=== PATIENT | female | born 2000 | race Two or more races ===

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

== ENCOUNTER 2021-05-02 10:02 | Emergency (ER) | payer MEDICAID, SELFPAY ==
[2021-05-02 10:09] VITALS: BP 152/95; PULSE 89; RESP 18; TEMP 36.3; O2SAT 98; BMI 48.7
[2021-05-02] MEDS: Fluorescein Sodium STRIP 1 STRIP EYE-BOTH (12:35)
[2021-05-02] MEDS: Tetracaine HCl/PF 0.5% Oph Sol 4 ML DROPS 1 DROP EYE-BOTH (12:35)
--- NOTE | 2021-05-02 12:40 | ED_ITS ---
HPI - General Adult General Chief complaint: General Medical Stated complaint: med reaction Time Seen by Provider: 05/02/21 11:50 Source: patient Mode of arrival: ambulatory Limitations: no limitations History of Present Illness HPI narrative: 20-year-old female with a longstanding history migraines here with complaints of concern for medication reaction. Patient tells me that she was started on Topamax by her primary care 1 week ago for her migraines. She tells me for the last 4 days she has felt like she has had flashing lights in her right eye with some intermittent blurred vision. No eye pain, drainage or discharge. She is also having continued headaches daily. No nausea, vomiting, dizziness. She does use glasses. No contact use. Related Data Allergies Allergy/AdvReac Type Severity Reaction Status Date / Time No Known Allergies Allergy Unverified 04/08/20 17:50 [No Known Allergies*] Review of Systems Review of Systems: Yes all other systems are reviewed and are negative Constitutional: Constitutional: Reports no additional constitutional complaints, Denies body ache(s), Denies chills, Denies fever(s), Denies headache(s) and Denies weakness Eyes: Eyes: Reports no additional eye complaints, Denies change in vision and Reports seeing flashes ENT: Reports system reviewed and no additional complaints, except as documented, Denies dizziness, Denies headache(s), Denies nasal congestion, Denies nasal discharge and Denies neck pain Cardiovascular: Cardiovascular: Reports no additional cardiovascular complaints, Denies chest pain, Denies leg edema and Denies dyspnea Respiratory: Respiratory: Reports no additional respiratory complaints, Denies cough and Denies dyspnea Gastrointestinal: Gastrointestinal: Reports no additional gastrointestinal complaints, Denies abdominal pain, Denies diarrhea, Denies nausea and Denies vomiting Genitourinary: Genitourinary: Reports no additional female genitourinary complaints and Denies urinary incontinence Musculoskeletal: Musculoskeletal: Reports no additional musculoskeletal complaints, Denies back pain, Denies arthralgias, Denies joint swelling, Denies neck pain, Denies numbness and Denies tingling Integumentary/Breasts: Skin/Breast: Reports system reviewed and no additional complaints, except as docu and Denies rash Neurologic: Reports system reviewed and no additional complaints, except as documented, Denies Abnormal speech present, Denies dizziness, Denies headache(s), Denies numbness, Denies tingling and Denies weakness [facility] Past Medical History Attestation statement: The following information was validated with the patient. Source: old records reviewed and nursing notes reviewed Medical History Anxiety Asthma Depression Social History Social History Alcohol intake: never Patient Tobacco Use Status: Never used Tobacco Use of substances other than those prescribed or required for medical reasons: No Advance Directives: No Advance Directives Information Provided: No Physical Exam Vital Signs: Vital Signs: Last Vital Signs Temp 97.4 F 05/02/21 14:13 Pulse 77 05/02/21 14:13 Resp 18 05/02/21 14:13 BP 97/62 05/02/21 14:13 Pulse Ox 99 05/02/21 14:13 Body Mass Index 48.7 Const: General: cooperative, healthy appearing, comfortable and no acute distress Orientation/consciousness: patient oriented x3 Limitations: no limitations HENMT: Head: Yes normal to inspection Ears: hearing grossly normal bilaterally and TM's normal bilaterally General nose exam: Normal external nose present Face and sinus: Yes normal facial exam Mouth: Normal oral and palatal mucosa present Throat: Yes posterior oropharynx normal, Yes tonsils normal and Yes uvula midline Eyes: Other: Fluorescein exam normal. No corneal abrasion or foreign body IOP right 15 IOP left 17 Visual acuity right 20/40, left 20/30 General: appearance normal, both eyes and all related structures Visual Bess: normal visual bess by confrontation Alignment and Position: alignment normal Periorbital: periorbital findings normal Eyelids: Yes eyelids normal Conjunctivae: conjunctivae normal Sclerae: sclerae normal Corneas: corneas normal Pupils: Equal, round and reactive pupils present EOM: EOMs intact bilaterally Direct Oph thalmoscopy: normal light reflex, no photophobia and anterior chamber normal Neck: Neck: Yes normal visual inspection Chest: Chest palpation & inspection: normal inspection of the chest Resp: Effort & Inspection: normal respiratory effort Auscultation: clear to auscultation bilaterally Cardio: Rate: regular rate Rhythm: regular rhythm Peripheral pulses: Peripheral pulses 2+ throughout GI: Inspection: Yes normal to inspection Palpation (GI): Soft to palpation and nontender Auscultation: normal bowel sounds Back/Spine/Pelvis: Thoracic/Lumbar Spine: thoracic and lumbar spine normal to inspection Skin: General skin exam: no rashes or lesions noted Neuro: General: patient oriented x3, no focal motor deficits and normal sensation to monofilament Cranial nerves: Yes CN's II-XII intact bilaterally, Yes Equal, round and reactive pupils present, Yes Bilaterally intact EOM present, Yes Nystagmus not present, Yes Normal facial strength present and Yes Midline tongue present Cognition (Neuro): normal cognition Speech: No Abnormal speech present Gait exam (Neuro): Normal gait present Motor exam (neuro): 5/5 motor strength present throughout Sensory Exam: Normal double simultaneous stimulation for sensation Extrem: General: Yes normal to inspection Course Course Course Narrative: 20 year old female here with right eye vision changes x 4 days in the setting of recently starting topamax. Also continued headache. Will check labs, perform visual exam, ?r/t underlying migraine. Will place PIV and give NSB, reglan, benadryl and re-asess. 1600- labs unremarkable. Patient tells me her headache is resolved. She feels like her vision in the right eye is much improved. She is still complaining of some intermittent floaters but no flashing lights. Recommend hold Topamax. Follow-up with Ophthalmology and primary care. Reviewed worrisome signs and symptoms of when to return to the emergency department. Comfortable discharge home. Medical Decision Making MDM Narrative Medical decision making narrative: Less likely retinal detachment with no risk factors, improving exam Eye complaints/migraine likely from intractable migraine Medical Records Medical records reviewed: Yes I reviewed the patient's medical records. Lab Data Lab results reviewed: Yes I reviewed the patient's lab results. Result diagrams: 05/02/21 13:41 05/02/21 13:42 Labs: Lab Results 05/02/21 05/02/21 Range/Units 13:41 13:42 WBC 11.5 H (4.8-10.8) X10*3/uL RBC 5.15 (4.20-5.50) X10*6/uL Hgb 14.5 (12.0-16.0) g/dl Hct 43.6 (37-47) % MCV 84.7 (80-98) fL MCH 28.2 (27.0-33.0) pg MCHC 33.3 (31.0-35.0) g/dl RDW 12.8 (11.0-16.0) % Plt Count 403 H (160-400) X10*3/uL MPV 9.6 (9.4-12.3) fL Immature Gran % (Auto) 0.3 (0.0-0.4) % Neut % (Auto) 60.8 (45-73) % Lymph % (Auto) 28.6 (20-40) % [place] % (Auto) 6.0 (2-11) % Eos % (Auto) 3.7 (0-4) % Baso % (Auto) 0.6 (0-2) % Lymph # (Auto) 3.3 (1.2-4.9) X10*3/uL [place] # (Auto) 0.7 (0.1-1.2) X10*3/uL Eos # (Auto) 0.4 (0.0-0.4) X10*3/uL Baso # (Auto) 0.1 (0.0-0.2) X10*3/uL Abs Immat Gran (auto) 0.04 H (0.00-0.03) X10*3/uL Absolute Neuts (auto) 7.0 (2.0-8.3) X10*3/uL Absolute Nucleated RBC 0.000 (0.0-0.012) X10*3/uL Nucleated RBC % (auto) 0.0 (0.0-0.2) /100WBC Sodium 141 (135-145) mmol/L Potassium 3.9 (3.3-5.1) mmol/L Chloride 111 H (96-108) mmol/L Carbon Dioxide 23 (22-29) mmol/L Anion Gap 11 L (12-20) BUN 9 (9-16) mg/dL Creatinine 0.79 (0.5-1.4) mg/dL Estim Creat Clear Calc 152.5 Estimated GFR > 60 Random Glucose 81 (60-115) mg/dL Calcium 9.4 (8.4-10.2) mg/dL Discharge Plan Discharge Clinical Impression: Migraine, Vision changes Patient Disposition: Home, Self-Care Instructions: Migraine Headache (ED) Additional Instructions: Stop Topamax Follow-up with ophthalmology Referrals: Beverly Marie MD [Primary Care Provider] - 2 days Armando Mckenna [Physician] - 2 days Interventions: ED Discharge Assessment Last Done: 05/02/21 16:12 Discharge Date/Time: 05/02/21 16:12
[2021-05-02 13:45] LABS: MANUAL DIFF FLAG NO
[2021-05-02 14:02] LABS: Anion Gap 11 (12-20); Blood Urea Nitrogen 9 mg/dL (9-16); Calcium 9.4 mg/dL (8.4-10.2); Carbon Dioxide 23 mmol/L (22-29); Chloride 111 mmol/L (96-108); Creatinine Clr Calc Pharmacy 152.5; Estimated Glomerular Filt Rate > 60; Glucose Random 81 mg/dL (60-115); Potassium 3.9 mmol/L (3.3-5.1); Sodium 141 mmol/L (135-145)
[2021-05-02] MEDS: 0.9 % Sodium Chloride 1,000 ML 999 ML IV (14:02)
[2021-05-02] MEDS: diphenhydrAMINE HCL 50 MG/ML VIAL 25 MG IVPUSH (14:02)
[2021-05-02] MEDS: Metoclopramide HCl 10 MG/2 ML VIAL IVPUSH (14:03)
[2021-05-02 14:13] VITALS: BP 97/62; PULSE 77; RESP 18; TEMP 36.3; O2SAT 99
[2021-05-02 15:24] LABS: Basophils Absolute Auto 0.1 X10*3/uL (0.0-0.2); Basophils Percent Auto 0.6 % (0-2); Eosinophils Absolute Auto 0.4 X10*3/uL (0.0-0.4); Eosinophils Percent Auto 3.7 % (0-4); Hematocrit 43.6 % (37-47); Hemoglobin 14.5 g/dl (12.0-16.0); Imm Gran Abs Auto 0.04 X10*3/uL (0.00-0.03); Imm Gran Pct Auto 0.3 % (0.0-0.4); Lymphocytes Absolute Auto 3.3 X10*3/uL (1.2-4.9); Lymphocytes Percent Auto 28.6 % (20-40); Mean Corpuscular HGB Conc 33.3 g/dl (31.0-35.0); Mean Corpuscular Hemoglobin 28.2 pg (27.0-33.0); Mean Corpuscular Volume 84.7 fL (80-98); Mean Platelet Volume 9.6 fL (9.4-12.3); Monocytes Absolute Auto 0.7 X10*3/uL (0.1-1.2); Neutrophils Percent Auto 60.8 % (45-73); Platelet Count 403 X10*3/uL (160-400); Red Blood Count 5.15 X10*6/uL (4.20-5.50); Red Cell Distribution Width 12.8 % (11.0-16.0); White Blood Count 11.5 X10*3/uL (4.8-10.8)
== END 2021-05-02 16:12 | disposition home or self-care (01) ==
PROVIDERS: Nurse Practitioner Family; Emergency Provider Emergency Medicine; PCP General Practice
DX: G43.909 Migraine, unspecified, not intractable, without status migrainosus (principal); H53.8 Other visual disturbances; J45.909 Unspecified asthma, uncomplicated; Z79.899 Other long term (current) drug therapy
CPT/HCPCS: 36415; 80048; 85025; 96361; 96374; 96375; 99284; J1200; J2765

== ENCOUNTER 2022-01-12 16:10 | Emergency (ER) | payer MEDICAID, SELFPAY ==
--- NOTE | ~2022-01-12 | XR_ITS ---
EXAMINATION: THORACIC AND LUMBAR SPINE CLINICAL INFORMATION: Back pain. COMPARISON: None TECHNIQUE: Lumbar spine 3 views. Thoracic spine 2 views. FINDINGS: THORACIC SPINE: There is normal thoracic kyphosis. The vertebral heights, alignment and disc heights are normal. There is no visible acute fracture, dislocation or lytic process seen. LUMBAR SPINE: There is normal lumbar lordosis. The vertebral heights, alignment and disc heights are normal. No visible acute fracture, dislocation or lytic process seen. The paravertebral soft tissues are normal. The SI joints are normal. The soft tissues are normal. XR/XR lumbar spine 2-3V IMPRESSION: Unremarkable dorsal spine exam. Unremarkable lumbar spine exam.
--- NOTE | ~2022-01-12 | XR_ITS ---
EXAMINATION: THORACIC AND LUMBAR SPINE CLINICAL INFORMATION: Back pain. COMPARISON: None TECHNIQUE: Lumbar spine 3 views. Thoracic spine 2 views. FINDINGS: THORACIC SPINE: There is normal thoracic kyphosis. The vertebral heights, alignment and disc heights are normal. There is no visible acute fracture, dislocation or lytic process seen. LUMBAR SPINE: There is normal lumbar lordosis. The vertebral heights, alignment and disc heights are normal. No visible acute fracture, dislocation or lytic process seen. The paravertebral soft tissues are normal. The SI joints are normal. The soft tissues are normal. XR/XR thoracic spine 3V IMPRESSION: Unremarkable dorsal spine exam. Unremarkable lumbar spine exam.
[2022-01-12 16:49] VITALS: BP 114/76; PULSE 94; RESP 15; TEMP 36.5; O2SAT 99; BMI 48.9
[2022-01-12] MEDS: Acetaminophen 325 MG TABLET 975 MG PO (16:58)
--- NOTE | 2022-01-12 17:22 | ED.BACK ---
HPI - Back Pain/Injury General Chief Complaint: Back Pain/Injury Stated Complaint: back pain unable to move Time Seen by Provider: 01/12/22 16:27 Source: patient Mode of arrival: ambulatory Limitations: no limitations History of Present Illness HPI Narrative: 21-year-old female no known medical history presents to the emergency department complaints of lower back pain x1 day. Patient describes as severe pain to her lower back, he tells me it is sharp/stabbing, and at times radiates to bilateral legs, above the knee. Patient was unable to ambulate due to the pain earlier today, she tells me she was at a store and she had to sit down for 2 hours before she could get up. Patient states forward bending prior to onset of pain while brushing her hair pain progressed over the next several hours. Pain started lower back and moved higher up and time w/ radiation down to the knees bilaterally. She reports prior episodes of back pain without similar symptoms of radiation. Patient denies saddle paresthesias or history of IV drug use no history of back procedures or injections. Patient denies fevers chills chest pain nausea vomiting palpitations or loss of consciousness, shortness of breath headache and dizziness MD elicited complaint: back pain Pertinent past history: prior back pain Onset (ago): hour(s) (5) Timing: constant Severity: severe Pain scale (0-10): 10 Similar Symptoms Previously: Yes Quality: sharp Location: lumbar spine and thoracic spine Radiation: left upper leg and right upper leg Exacerbating factors: movement and walking Relieving factors: none Context: bending Associated symptoms: difficulty walking Work related injury: No Related Data Previous Rx's Medication Instructions Recorded cyclobenzaprine 10 mg tablet 10 mg PO BEDTIME PRN muscle spasm 01/12/22 #7 tabs lidocaine 5 % topical patch 1 patch topical DAILY PRN pain #15 01/12/22 ea naproxen 500 mg tablet 500 mg PO BID PRN pain #14 tabs 01/13/22 Allergies Allergy/AdvReac Type Severity Reaction Status Date / Time No Known Allergies Allergy Unverified 04/08/20 17:50 [No Known Allergies*] Review of Systems Review of Systems: Constitutional : No Weight loss, No Fever, No Chills, No Fatigue, No Malaise ENT/Mouth : No sore throat, No Rhinorrhea Eyes: No Eye Pain, No Swelling, No Redness Cardiovascular : No Chest Pain, No SOB, No Dyspnea on Exertion, No Orthopnea, No Edema, No Palpitations Respiratory : No Cough, No Sputum, No Wheezing Gastrointestinal : No Nausea, No Vomiting, No Diarrhea, No Constipation, No abdominal Pain, No Hematochezia, No Melena Genitourinary : No Dysuria, No Urinary Frequency, No Hematuria, Musculoskeletal : + joint pain, No Myalgias, No Joint Swelling Skin : No Skin Lesions, No rash Neuro : No Weakness, No Numbness, No Dizziness, No Headache Psych : No Anxiety/Panic, No Depression All other systems reviewed and are negative Yes all other systems are reviewed and are negative [facility] Past Medical History Medical History Anxiety Asthma Depression Social History Social History Alcohol intake: never Patient Tobacco Use Status: Never used Tobacco Advance Directives: No Advance Directives Information Provided: No Physical Exam Vital Signs: Vital Signs: Last Vital Signs Temp 97.7 F 01/12/22 16:49 Pulse 78 01/12/22 20:00 Resp 18 01/12/22 20:00 BP 106/48 L 01/12/22 20:00 Pulse Ox 98 01/12/22 20:00 O2 Del Method 01/12/22 20:00 BMI result Body Mass Index 48.9 VSS Appearance: Alert.? Oriented X3.? No acute distress.? Head: Normocephalic, atraumatic, no step-offs or deformities Eyes: Pupils equal, round and reactive to light.? ENT: Pharynx normal.? Neck: Normal inspection.? Neck supple.? CVS: Normal heart rate and rhythm.? Pulses normal.? Respiratory: No respiratory distress.? Breath sounds normal.? Abdomen: Soft and nontender.? Skin: Skin warm and dry.? Normal skin color.? Normal skin turgor.? Extremities: No lower extremity edema.? No calf ttp. 5/5 strength to bilateral upper and lower extremities. 2+ patellar reflex equal bilaterally Back: No midline tenderness, no C-spine tenderness, full range of motion, no CVA tenderness bilaterally Neuro: Oriented X 3.? No motor deficit.? No sensory deficit. CN 2-12 intact. No saddle paresthesias. Ambulating with steady gait normal coordination Course Reevaluation(s) Reevaluation #1: X-ray of the lumbar and thoracic spine unremarkable. Patient reported 7/10 pain after morphine. She was ambulated around the department with success. Patient appears much better than she did when she appeared. Due to pain she will be given another 2 mg of morphine and then she will be discharged home with strict return precautions. Educate her worrisome signs and symptoms an outline is on her discharge. Time: 00:32 MDM - Back Pain/Injury MDM Narrative Medical decision making narrative: [id number] 21-year-old obese female presents with lumbar and thoracic back pain starting 5 hours ago after forward bending, denies red flag symptoms. Physical examination is significant for paraspinous tenderness reproducible with palpation in lumbar and thoracic region and radiculopathy down to the knee bilaterally. Normal patellar reflexes bilaterally. No midline tenderness. Plan plan at this time is to obtain plain films and medicate for pain Likely diagnosis at this time is herniated disc or lumbar thoracic strain, unlikely that this is cauda equina or epidural abscess Medical Records Attestation: I reviewed the patient's medical records. Lab Data Attestation: I reviewed the patient's lab results. Critical Care Time Critical Care Time Critical Care Time: No Discharge Plan Discharge Clinical Impression: Strain of lumbar region, Thoracic back pain, Sciatica Patient Disposition: Home, Self-Care Instructions: Sciatica (ED), Acute Low Back Pain (ED), Back Pain (ED), Lower Back Exercises (ED) Additional Instructions: Take your medications as prescribed. If you were prescribed antibiotics today, it is important that you take your medication to their entirety, do not skip any doses, do not finish them early. Follow-up with your primary care provider this week. Return to the emergency department with new or worsening symptoms. Such as fevers, chills, chest pain, shortness of breath, nausea, vomiting, dizziness, headache, vision changes, lethargy, loss of bowel or bladder control, numbness or tingling In case of emergency call 911 No acute findings on x-ray however this is only looks at bone and soft tissue injury unable to see ligament disc injury or tendon injuries. If the pain continues you will likely need an MRI to evaluate for ligament, tendon injury or slipped/herniated disc please follow-up with PCP Cyclobenzaprine as a muscle relaxer that can cause drowsiness and you should not operate machinery or drive while taking this medication For pain control please take ibuprofen every 6 hours and Tylenol every 4 alternating. Naproxen as an anti-inflammatory medicine sent to your pharmacy, do not take any NSAIDS or ibuprofen with this medication. XR/XR lumbar/thoracic spine 2-3V IMPRESSION: Unremarkable dorsal spine exam. ? Unremarkable lumbar spine exam.? Prescriptions: New cyclobenzaprine 10 mg tablet 10 mg PO BEDTIME PRN (Reason: muscle spasm) Qty: 7 0RF lidocaine 5 % adhesive patch,medicated 1 patch topical DAILY PRN (Reason: pain) Qty: 15 0RF Rx Instructions: leave on most painful area for up to 12 hrs naproxen 500 mg tablet 500 mg PO BID PRN (Reason: pain) Qty: 14 0RF Rx Instructions: Take with food Referrals: Physician,Unknown J [Primary Care Provider] - 2 days [facility] [Outside] - 1 day Stand Alone Forms: Work/School Release
[2022-01-12] MEDS: Cyclobenzaprine HCl 10 MG TABLET PO (18:14)
[2022-01-12] MEDS: Ketorolac Tromethamine 30 MG/ML VIAL IM (18:15)
[2022-01-12] MEDS: Lidocaine 4 % Patch ADH..PATCH 1 PATCH TRANSDERMA (18:16)
[2022-01-12 20:00] VITALS: BP 106/48; PULSE 78; RESP 18; O2SAT 98
--- NOTE | 2022-01-12 20:29 | PC.NURSE ---
attempted to sit pt up to ambulate, pt unable to tolerate due to pain. c/o 10/10 left lower back pain. pt reports some relief w medication but she readjusted herself in bed and the pain worsened again.
[2022-01-12] MEDS: Morphine Sulfate 4 MG/ML CARTRIDGE IVPUSH (20:45)
--- NOTE | 2022-01-12 23:54 | PC.NURSE ---
patient independently ambulated with steady gait around unit with standby assist from this EDT. placed self back in bed in seated positon. all saftey maintained
[2022-01-13] VITALS: BP 119/79; PULSE 85; RESP 18; O2SAT 98
[2022-01-13 00:40] VITALS: RESP 18
[2022-01-13] MEDS: Morphine Sulfate 2 MG/ML CARTRIDGE IVPUSH (00:40)
== END 2022-01-13 00:55 | disposition home or self-care (01) ==
PROVIDERS: Emergency Provider Emergency Medicine Emergency Medical Services
DX: S39.012A Strain of muscle, fascia and tendon of lower back, initial encounter (principal); M54.6 Pain in thoracic spine; M54.40 Lumbago with sciatica, unspecified side; E66.9 Obesity, unspecified; Z68.42 Body mass index [BMI] 45.0-49.9, adult; J45.909 Unspecified asthma, uncomplicated; X58.XXXA Exposure to other specified factors, initial encounter; Y93.9 Activity, unspecified; Y92.9 Unspecified place or not applicable; Y99.9 Unspecified external cause status
CPT/HCPCS: 72072; 72100; 96372; 96374; 96376; 99284; J1885; J2270

== ENCOUNTER 2022-10-27 10:40 | Outpatient (REF) | payer OTHER, SELFPAY ==
[2022-10-27 11:51] LABS: Anion Gap 12 (12-20); Blood Urea Nitrogen 7 mg/dL (9-16); Calcium 9.6 mg/dL (8.4-10.2); Carbon Dioxide 23 mmol/L (22-29); Chloride 110 mmol/L (96-108); Cholesterol 166 mg/dL; Estimated Glomerular Filt Rate > 60; Glucose Random 123 mg/dL (60-115); Potassium 4.2 mmol/L (3.3-5.1); Sodium 141 mmol/L (135-145)
[2022-10-27 12:07] LABS: TSH reflex Free T4 1.93 uIU/mL (0.32-4.0)
== END 2022-10-27 10:41 | disposition home or self-care (01) ==
LOC: HO.LAB 10:40
PROVIDERS: PCP Nurse Practitioner Family; Visit Provider Nurse Practitioner Family
DX: Z13.220 Encounter for screening for lipoid disorders (principal); Z13.29 Encounter for screening for other suspected endocrine disorder
CPT/HCPCS: 36415; 80048; 82465; 84443

== ENCOUNTER 2023-11-13 09:07 | Outpatient (AMB) | payer OTHER, SELFPAY ==
--- NOTE | 2023-11-13 09:10 | A.OFFPC_ITS ---
Vital Signs 11/13/23 09:12 Height 5 ft 4 in Weight 303 lb 4 oz BMI 52.0 BP 112/80 Blood Pressure Location Lt brachial Position Sitting Pulse 82 Pulse Source Pulse Oximeter Pulse Oximetry (%) 98 Oxygen Delivery Method Room Air Intake Visit Reasons: Med review Intake Note: Patient is here to follow up on ALEXIS and Med review. Requesting for referral ENT for partial hearing loss. Requesting for complete lab order. Punching Machine Operator Required: No Slasher: Present Accompanied by: Spouse Allergies No Known Allergies [No Known Allergies*] Allergy (Verified 11/13/23 17:53) Tobacco use date assessed: 11/13/23 Dental Screening Dental Screen Date: 11/13/23 Did you have a dental visit in the last 12 months?: Yes Did you have a dental problem in the last 6 months where you did not have access to dental care?: No Was dental information given to patient?: Patient has dentist HPI Med review HPI Details 23 yr old female presents to the office to discuss her medical conditions. Patient reports her hearing in the left ear is diminished. She uses the phone in the right ear, TV volume is loud. No tinnitus. Would like to a referral to the weight managment clinic in [facility]. Patient dropped out of college due to anxiety and currently sees a therapist. She continues to work. Non smoker. Does not exercise or follow any particular diet. [facility] Medical History (Updated 11/13/23 @ 17:59 by Denis Rodriguez MD) Morbid obesity with BMI of 50.0-59.9, adult Hearing difficulty of left ear Migraine Depression Anxiety Asthma Surgical History No pertinent past surgical history Family History Mother Bipolar affect, depressed Father Diabetes Brother Asthma Other FH: mental illness Social History Household Members: Other Household Members Other:: grandmother Housing: House Alcohol intake: never Patient Tobacco Use Status: Never used Tobacco e-Cigarette/Vaping Use: Never Used Second Hand Smoke Exposure: No service: No Current occupational status: unemployed Current occupational exposures/hazards: No Cognitive needs: No Hearing needs: No Vision needs: Yes (Glasses) Questionnaire PHQ-9 Over the last 2 weeks, how often have you been bothered by any of the following problems? 1. Little interest or pleasure in doing things: nearly every day 2. Feeling down, depressed, or hopeless: more than half the days 3. Trouble falling or staying asleep, or sleeping too much: nearly every day 4. Feeling tired or having little energy: several days 5. Poor appetite or overeating: nearly every day 6. Feeling bad about yourself - or that you are a failure or have let yourself or your family down: several days 7. Trouble concentrating on things, such as reading the newspaper or watching television: nearly every day 8. Moving or speaking so slowly that other people could have noticed. Or the opposite - being so fidgety or restless that you have been moving around a lot more than usual: nearly every day 9. Thoughts that you would be better off or of hurting yourself in some way: not at all Total score: 19 Depression Screening Interpretation: Positive Depression Screening Follow-up: Existing condition and In treatment Depression Screening Done: Yes Source: Developed by Drs. Joel Ayoub, Katie Walls, Jaya Vieira and colleagues, with an educational yasmin from [employer]. Thrive Questionnaire Date Thrive assessed: 11/13/23 I am a: Patient What is your living situation today?: I have a steady place to live Within the past 12 months, did the food you bought not last and you didn't have the money to get more?: Never true Within the past 12 months, did you worry whether your food would run out before you got money to buy more?: Never true Do you have trouble paying for medicines?: No Do you have trouble getting transportation to medical appointments?: No Do you have trouble paying your heating and electricity bill?: No Do you have trouble taking care of your child, family member or friend?: No Do you have trouble with day-to-day activities such as bathing, preparing meals, shopping, managing finances, etc.?: No Are you currently unemployed and looking for a job?: No Are you interested in more education?: No Currently or been in a relationship where the following occur: no concerns reported THRIVE Score: 0 AUDIT C Alcohol Use Questionnaire (AUDIT-C) 1. How often do you have a drink containing alcohol?: Never Total Score: 0 DANAE-7 AMB Questionnaire DANAE-7 Date DANAE - 7 assessed: 11/13/23 Feeling nervous, anxious, or on edge: 3 = Nearly every day Not being able to stop or control worryin = Nearly every day Worrying too much about different things: 3 = Nearly every day Trouble relaxin = More than half the days Being so restless that it is hard to sit still: 3 = Nearly every day Becoming easily annoyed or irritable: 3 = Nearly every day Feeling afraid as if something awful might happen: 3 = Nearly every day Total DANAE-7 score (0-4 normal; 5-9 mild; 10-14 moderate; 15-21 severe): 20 Source: Developed by Drs. Joel Ayoub, Katie Walls, Jaya Vieira and colleagues, with an educational yasmin from [employer]. Physical exam (Primary Care) Vital Signs: Last Vital Signs Pulse 82 11/13/23 09:12 BP 112/80 11/13/23 09:12 Pulse Ox 98 11/13/23 09:12 Oxygen Delivery Method Room Air 11/13/23 09:12 BMI result Body Mass Index 52.0 Referral for weight management given. BMI Assessment/Plan discussion: High Tobacco/Smoking Status: Tobacco use Status Tobacco use date assessed 11/13/23 11/13/23 09:21 Patient Tobacco Use Status Never used Tobacco 11/13/23 09:21 e-Cigarette/Vaping Use Never Used 11/13/23 09:21 PHQ-9: PHQ-9 Score PHQ-9: Total score 19 11/13/23 10:00 Depression Screening Interpretation: Positive Depression Screening Follow-up: Existing condition and In treatment Thrive Assessment: Date of Thrive Assessment Date Thrive assessed 11/13/23 11/13/23 09:21 Currently or been in a relationship where the following occur: no concerns reported Const General: cooperative and healthy appearing Nutritional Appearance: well nourished Orientation/consciousness: patient oriented x3 Limitations: no limitations HENMT Head: Yes normal to inspection Eyes General: appearance normal, both eyes and all related structures Neck Neck: Yes normal visual inspection Chest Chest palpation & inspection: normal palpation of entire chest wall Resp Effort & Inspection: normal respiratory effort Neuro General: patient oriented x3 Assessment and Plan Assessment & Plan (1) Hearing difficulty of left ear: Code(s): H91.92 - Unspecified hearing loss, left ear Plan: Audiology consult placed. (2) Depression: Code(s): F32.9 - Major depressive disorder, single episode, unspecified Plan: Patient has increased PHQ-9 numbers and is seeing a counsellor. (3) Anxiety: Code(s): F41.9 - Anxiety disorder, unspecified (4) Morbid obesity with BMI of 50.0-59.9, adult: Code(s): E66.01 - Morbid (severe) obesity due to excess calories; Z68.43 - Body mass index [BMI] 50.0-59.9, adult Plan: Counselling on diet and exercise done. As per her request a referral for weight loss has been made. Orders: Orders Basic Metabolic Panel Today F32.9 - Major depressive disorder, single episode, unspecified, F41.9 - Anxiety disorder, unspecified, H91.92 - Unspecified hearing loss, left ear Lipid Panel Today F32.9 - Major depressive disorder, single episode, unspecified, F41.9 - Anxiety disorder, unspecified, H91.92 - Unspecified hearing loss, left ear Complete Blood Count no Diff Today F32.9 - Major depressive disorder, single episode, unspecified, F41.9 - Anxiety disorder, unspecified, H91.92 - Unspecified hearing loss, left ear Liver Panel Today F32.9 - Major depressive disorder, single episode, unspecified, F41.9 - Anxiety disorder, unspecified, H91.92 - Unspecified hearing loss, left ear Thyroid Stimulating Hormone Today F32.9 - Major depressive disorder, single episode, unspecified, F41.9 - Anxiety disorder, unspecified, H91.92 - Unspecified hearing loss, left ear UA and rflx microscopic Today F32.9 - Major depressive disorder, single episode, unspecified, F41.9 - Anxiety disorder, unspecified, H91.92 - Unspeci fied hearing loss, left ear Referrals Audiology Referral H91.90 - Unspecified hearing loss, unspecified ear Metabolic Clinic Referral E66.01 - Morbid (severe) obesity due to excess calories, Z68.42 - Body mass index [BMI] 45.0-49.9, adult Medications: Refilled albuterol sulfate 90 mcg/actuation 2 puffs inhalation Q4-6H PRN 8.5 grams 0RF shortness of breath or wheezing J45.909 - Unspecified asthma, uncomplicated Coding Level of Care Code Est Pt Level 4 (60135) Diagnoses Hearing difficulty of left ear H91.92 Depression F32.9 Anxiety F41.9 Morbid obesity with BMI of 50.0-59.9, adult E66.01; Z68.43
[2023-11-13 09:12] VITALS: BP 112/80; PULSE 82; O2SAT 98; BMI 52.0
== END 2023-11-13 10:17 | disposition home or self-care (01) ==
PROVIDERS: PCP Internal Medicine; Visit Provider Internal Medicine
DX: H91.92 Unspecified hearing loss, left ear (principal); E66.01 Morbid (severe) obesity due to excess calories; Z68.43 Body mass index [BMI] 50.0-59.9, adult; F32.9 Major depressive disorder, single episode, unspecified; F41.9 Anxiety disorder, unspecified
CPT/HCPCS: 99214

== ENCOUNTER 2024-03-20 15:02 | Outpatient (AMB) | payer OTHER, SELFPAY ==
--- NOTE | 2024-03-20 15:05 | MHC.PC.OV ---
Vital Signs 03/20/24 15:06 Height 5 ft 4 in Weight 300 lb 6 oz BMI 51.6 BP 112/62 Blood Pressure Location Lt brachial Position Sitting Pulse 88 Pulse Source Pulse Oximeter Pulse Oximetry (%) 98 Oxygen Delivery Method Room Air Intake Visit Reasons: annual exam Intake Note: Patient is here today for a physical. Director Franchise Sales Required: No Sales Representative Publications: Present Accompanied by: Significant Other Allergies No Known Allergies [No Known Allergies*] Allergy (Verified 03/20/24 15:05) Tobacco use date assessed: 03/20/24 Dental Screening Dental Screen Date: 11/13/23 HPI annual exam HPI Details 23-year-old female presents to the office requesting an annual physical. [facility] Medical History Morbid obesity with BMI of 50.0-59.9, adult Hearing difficulty of left ear Migraine Depression Anxiety Asthma Surgical History No pertinent past surgical history Family History Mother Bipolar affect, depressed Father Diabetes Brother Asthma Other FH: mental illness Social History Household Members: Other Household Members Other:: grandmother Housing: House Alcohol intake: never Patient Tobacco Use Status: Never used Tobacco e-Cigarette/Vaping Use: Never Used Second Hand Smoke Exposure: No service: No Current occupational status: student Current occupational exposures/hazards: No Cognitive needs: No Hearing needs: No Vision needs: Yes (Glasses) Questionnaire PHQ-9 Over the last 2 weeks, how often have you been bothered by any of the following problems? 1. Little interest or pleasure in doing things: several days 2. Feeling down, depressed, or hopeless: several days 3. Trouble falling or staying asleep, or sleeping too much: nearly every day 4. Feeling tired or having little energy: nearly every day 5. Poor appetite or overeating: more than half the days 6. Feeling bad about yourself - or that you are a failure or have let yourself or your family down: nearly every day 7. Trouble concentrating on things, such as reading the newspaper or watching television: nearly every day 8. Moving or speaking so slowly that other people could have noticed. Or the opposite - being so fidgety or restless that you have been moving around a lot more than usual: more than half the days 9. Thoughts that you would be better off or of hurting yourself in some way: not at all Total score: 18 Depression Screening Interpretation: Positive Depression Screening Done: Yes Source: Developed by Drs. Joel Ayoub, Katie Walls, Jaya Vieira and colleagues, with an educational yasmin from [email or web address]. Thrive Questionnaire Date Thrive assessed: 11/13/23 I am a: Patient What is your living situation today?: I choose not to answer this question Within the past 12 months, did the food you bought not last and you didn't have the money to get more?: Often true Within the past 12 months, did you worry whether your food would run out before you got money to buy more?: Often true Do you have trouble paying for medicines?: No Do you have trouble getting transportation to medical appointments?: Yes Do you have trouble paying your heating and electricity bill?: No Do you have trouble taking care of your child, family member or friend?: No Do you have trouble with day-to-day activities such as bathing, preparing meals, shopping, managing finances, etc.?: No Are you currently unemployed and looking for a job?: No Are you interested in more education?: Yes Please select the resources that you would like help with: Transportation Currently or been in a relationship where the following occur: No concerns reported and I choose not to answer THRIVE Score: 3 AUDIT C Alcohol Use Questionnaire (AUDIT-C) 1. How often do you have a drink containing alcohol?: Never Total Score: 0 DANAE-7 AMB Questionnaire DANAE-7 Date DANAE - 7 assessed: 11/13/23 Feeling nervous, anxious, or on edge: 3 = Nearly every day Not being able to stop or control worryin = Nearly every day Worrying too much about different things: 3 = Nearly every day Trouble relaxin = Nearly every day Being so restless that it is hard to sit still: 3 = Nearly every day Becoming easily annoyed or irritable: 3 = Nearly every day Feeling afraid as if something awful might happen: 3 = Nearly every day Total DANAE-7 score (0-4 normal; 5-9 mild; 10-14 moderate; 15-21 severe): 21 Source: Developed by Drs. Joel Ayoub, Katie Walls, Jaya Vieira and colleagues, with an educational yasmin from [email or web address]. Physical exam (Primary Care) Vital Signs: Last Vital Signs Pulse 88 03/20/24 15:06 BP 112/62 03/20/24 15:06 Pulse Ox 98 03/20/24 15:06 Oxygen Delivery Method Room Air 03/20/24 15:06 BMI result Body Mass Index 51.6 Tobacco/Smoking Status: Tobacco use Status Tobacco use date assessed 03/20/24 03/20/24 15:09 Patient Tobacco Use Status Never used Tobacco 03/20/24 15:09 e-Cigarette/Vaping Use Never Used 03/20/24 15:09 PHQ-9: PHQ-9 Score PHQ-9: Total score 18 03/20/24 15:09 Depression Screening Interpretation: Positive Thrive Assessment: Date of Thrive Assessment Date Thrive assessed 11/13/23 03/20/24 15:09 Currently or been in a relationship where the following occur: No concerns reported and I choose not to answer Const General: cooperative and healthy appearing Nutritional Appearance: well nourished Orientation/consciousness: patient oriented x3 Limitations: no limitations HENMT Head: Yes normal to inspection Eyes General: appearance normal, both eyes and all related structures Neck Neck: Yes normal visual inspection Chest Chest palpation & inspection: normal palpation of entire chest wall Resp Effort & Inspection: normal respiratory effort Neuro General: patient oriented x3 Assessment and Plan Assessment & Plan (1) Morbid obesity with BMI of 50.0-59.9, adult: Code(s): E66.01 - Morbid (severe) obesity due to excess calories; Z68.43 - Body mass index [BMI] 50.0-59.9, adult Plan: Metabolic clinic referral to be made again. (2) Hearing difficulty of left ear: Code(s): H91.92 - Unspecified hearing loss, left ear Plan: Audiology consult to be made again. (3) Depression: Code(s): F32.9 - Major depressive disorder, single episode, unspecified Plan: Patient reports a high PHQ 9 score. Community navigation will be involved to get patient a therapist. (4) Physical exam, annual: Code(s): Z00.00 - Encounter for general adult medical examination without abnormal findings Plan: Blood work has been ordered. Coding Level of Care Code Est Pt Prev Care 18-39y([id number]) Diagnoses Morbid obesity with BMI of 50.0-59.9, adult E66.01; Z68.43 Hearing difficulty of left ear H91.92 Depression F32.9 Physical exam, annual Z00.00
[2024-03-20 15:06] VITALS: BP 112/62; PULSE 88; O2SAT 98; BMI 51.6
== END 2024-03-20 15:57 | disposition home or self-care (01) ==
PROVIDERS: PCP Internal Medicine; Visit Provider Internal Medicine
DX: Z00.00 Encounter for general adult medical examination without abnormal findings (principal); E66.01 Morbid (severe) obesity due to excess calories; Z68.43 Body mass index [BMI] 50.0-59.9, adult; H91.92 Unspecified hearing loss, left ear; F32.9 Major depressive disorder, single episode, unspecified
CPT/HCPCS: 99395

== ENCOUNTER 2024-03-25 15:51 | Outpatient (REF) | payer OTHER, SELFPAY | END 2024-03-25 15:52 | disposition home or self-care (01) | LOC: HO.SH 15:51 | PROVIDERS: Visit Provider Internal Medicine | DX: Z01.118 Encounter for examination of ears and hearing with other abnormal findings (principal); H93.293 Other abnormal auditory perceptions, bilateral | CPT/HCPCS: 92557; 92567; 92588 ==

== ENCOUNTER 2024-04-11 11:49 | Outpatient (REF) | payer OTHER, SELFPAY ==
[2024-04-11 12:36] LABS: Appearance Urine Cloudy; Color Urine Yellow; Glucose Urine UA Negative (Negative); Leukocyte Esterase Urine Large (3+) (Negative); Nitrite Urine Negative (Negative); Specific Gravity - Urine 1.025 (1.005-1.025); UMIC TRIGGER UA YES; Urine Blood Negative (Negative); Urine Ketones Trace mg/dL (Negative); Urine Protein Negative (Neg-Trace)
[2024-04-11 12:38] LABS: Hemoglobin 13.2 g/dl (12.0-16.0); Mean Corpuscular HGB Conc 32.2 g/dl (31.0-35.0); Mean Corpuscular Hemoglobin 27.8 pg (27.0-33.0); Mean Corpuscular Volume 86.3 fL (80.0-98.0); Mean Platelet Volume 9.8 fL (9.4-12.3); Platelet Count 384 X10*3/uL (160-400); Red Blood Count 4.75 X10*6/uL (4.20-5.50); Red Cell Distribution Width 13.3 % (11.0-16.0); White Blood Count 10.8 X10*3/uL (4.8-10.8)
[2024-04-11 12:51] LABS: Bacteria Urine 2+ (None Seen); Hyaline Casts Urine 0-2 /LPF (0-2); RBC Urine 0-2 /HPF (0-2)
[2024-04-11 13:08] LABS: Alanine Aminotransferase 30 U/L (0-31); Albumin Level 4.4 g/dL (3.5-5.0); Alkaline Phosphatase 94 U/L (39-117); Anion Gap 12 (12-20); Aspartate Amino Transferase 18 U/L (5-31); Bilirubin Direct 0.2 mg/dL (0.0-0.5); Bilirubin Total 0.4 mg/dL (0.0-1.0); Blood Urea Nitrogen 9 mg/dL (9-16); Calcium 9.8 mg/dL (8.4-10.2); Carbon Dioxide 25 mmol/L (22-29); Chloride 109 mmol/L (96-108); Cholesterol 166 mg/dL (<200); Estimated Glomerular Filt Rate > 60; Glucose Random 89 mg/dL (60-115); HDL Cholesterol 37 mg/dL (>40); LDL Cholesterol Calculated 114 mg/dL (<100); Potassium 3.8 mmol/L (3.3-5.1); Sodium 142 mmol/L (135-145); Total Protein 8.3 g/dL (6.5-8.0); Triglycerides 75 mg/dL (<150)
[2024-04-11 13:25] LABS: Thyroid Stimulating Hormone 1.96 uIU/mL (0.32-4.0)
== END 2024-04-11 11:50 | disposition home or self-care (01) ==
LOC: HO.LAB 11:49
PROVIDERS: PCP Internal Medicine; Visit Provider Internal Medicine
DX: H91.92 Unspecified hearing loss, left ear (principal); F32.9 Major depressive disorder, single episode, unspecified; F41.9 Anxiety disorder, unspecified
CPT/HCPCS: 36415; 80048; 80061; 80076; 81001; 84443; 85027

== ENCOUNTER 2024-04-21 10:41 | Outpatient (AMB) | payer OTHER, SELFPAY ==
[2024-04-21 10:45] VITALS: BP 126/80; PULSE 84; O2SAT 98; BMI 51.1
--- NOTE | 2024-04-21 10:45 | A.OFFPC_ITS ---
Vital Signs 04/21/24 10:45 Height 5 ft 4 in Weight 298 lb BMI 51.1 BP 126/80 Blood Pressure Location Lt brachial Position Sitting Pulse 84 Pulse Source Pulse Oximeter Pulse Oximetry (%) 98 Oxygen Delivery Method Room Air Intake Visit Reasons: Canker sore/ sore throat Rn Pain Management Required: No Accompanied by: Self / Same As Patient Allergies No Known Allergies [No Known Allergies*] Allergy (Verified 04/22/24 14:36) Tobacco use date assessed: 03/20/24 Dental Screening Dental Screen Date: 04/21/24 Did you have a dental visit in the last 12 months?: Yes Did you have a dental problem in the last 6 months where you did not have access to dental care?: No Was dental information given to patient?: Patient has dentist HPI Canker sore/ sore throat HPI Details 23-year-old female presents to the [facility] for a sick visit. Patient is reporting sores in her mouth for the past week. Painful to swallow. Since yesterday, she is also complaining of sore throat with mild postnasal drip. No fevers or chills. [facility] Medical History Morbid obesity with BMI of 50.0-59.9, adult Hearing difficulty of left ear Migraine Depression Anxiety Asthma Surgical History No pertinent past surgical history Family History Mother Bipolar affect, depressed Father Diabetes Brother Asthma Other FH: mental illness Social History Household Members: Other Household Members Other:: grandmother Housing: House Alcohol intake: never Patient Tobacco Use Status: Never used Tobacco e-Cigarette/Vaping Use: Never Used Second Hand Smoke Exposure: No service: No Current occupational status: student Current occupational exposures/hazards: No Cognitive needs: No Hearing needs: No Vision needs: Yes (Glasses) Questionnaire Thrive Questionnaire Date Thrive assessed: 03/20/24 I am a: Patient What is your living situation today?: I choose not to answer this question Within the past 12 months, did the food you bought not last and you didn't have the money to get more?: Often true Within the past 12 months, did you worry whether your food would run out before you got money to buy more?: Often true Do you have trouble paying for medicines?: No Do you have trouble getting transportation to medical appointments?: Yes Do you have trouble paying your heating and electricity bill?: No Do you have trouble taking care of your child, family member or friend?: No Do you have trouble with day-to-day activities such as bathing, preparing meals, shopping, managing finances, etc.?: No Are you currently unemployed and looking for a job?: No Are you interested in more education?: Yes Please select the resources that you would like help with: Transportation THRIVE Score: 3 DANAE-7 AMB Questionnaire DANAE-7 Date DANAE - 7 assessed: 11/13/23 Source: Developed by Drs. Joel Ayoub, Katie Walls, Jaya Vieira and colleagues, with an educational yasmin from [employer]. Physical exam (Primary Care) Vital Signs: Last Vital Signs Pulse 84 04/21/24 10:45 BP 126/80 04/21/24 10:45 Pulse Ox 98 04/21/24 10:45 Oxygen Delivery Method Room Air 04/21/24 10:45 BMI result Body Mass Index 51.1 Tobacco/Smoking Status: Tobacco use Status Tobacco use date assessed 03/20/24 04/21/24 10:48 Patient Tobacco Use Status Never used Tobacco 04/21/24 10:48 e-Cigarette/Vaping Use Never Used 04/21/24 10:48 Thrive Assessment: Date of Thrive Assessment Date Thrive assessed 03/20/24 04/21/24 10:48 Const General: cooperative and healthy appearing Nutritional Appearance: well nourished Orientation/consciousness: patient oriented x3 Limitations: no limitations HENMT Other: Throat: Multiple tiny erythematous lesions in the hard and soft palate. Few canker sores on the mucosal surface of the lower lip. Head: Yes normal to inspection Eyes General: appearance normal, both eyes and all related structures Neck Other: No lymphadenopathy. Neck: Yes normal visual inspection Chest Chest palpation & inspection: normal palpation of entire chest wall Resp Effort & Inspection: normal respiratory effort Neuro General: patient oriented x3 Coding Level of Care Code Est Pt Level 3 (39369) Complex EM visit Add On G2591 Diagnoses Aphthous stomatitis K12.0
== END 2024-04-21 11:07 | disposition home or self-care (01) ==
PROVIDERS: PCP Internal Medicine; Visit Provider Internal Medicine
DX: K12.0 Recurrent oral aphthae (principal)

== ENCOUNTER → 2024-04-21 10:41 | Outpatient (BNVA) | payer OTHER, SELFPAY | PROVIDERS: PCP Internal Medicine; Visit Provider Internal Medicine | DX: K12.0 Recurrent oral aphthae (principal) | CPT/HCPCS: 99212 ==

== ENCOUNTER 2024-05-10 18:57 | Emergency (ER) | payer OTHER, SELFPAY ==
[2024-05-10 19:00] VITALS: BP 124/79; PULSE 95; RESP 18; TEMP 36.4; O2SAT 100; BMI 52.2
--- NOTE | 2024-05-10 19:01 | ED_ITS ---
HPI - Allergic Reaction General Chief complaint: Allergic Reaction Stated complaint: alergic reaction to shrimp Time Seen by Provider: 05/10/24 19:24 Source: patient, RN notes reviewed and old records reviewed Mode of arrival: ambulatory History of Present Illness ED Provider: Polina Rodriguez PA-C HPI narrative: 23-year-old female with past medical history depression, anxiety, asthma, presenting to the ED complaining of suspected allergic reaction s/p closing bag of shrimp at work [employer]. Reports right hand/arm numbness/tingling, mild SOB, throat closing sensation. States she is allergic to shrimp with unknown al lergy, does not have EpiPen. Denies other new exposures, cough, chest pain, rash. Denies taking medications [employer]. Related Data Previous Rx's ?Medication ?Instructions ?Recorded albuterol sulfate 90 mcg/actuation 2 puff inhalation Q4-6H PRN 04/07/24 aerosol inhaler shortness of breath or wheezing #8.5 grams Maalox, Benadry, Lidocaine #1 ea 04/21/24 Allergies Allergy/AdvReac Type Severity Reaction Status Date / Time shrimp Allergy Facial Verified 05/10/24 19:45 Swelling Review of Systems Review of Systems: Yes all other systems are reviewed and are negative Constitutional: Constitutional: Reports as per HPI [facility] Past Medical History Attestation statement: The following information was validated with the patient. Source: old records reviewed Medical History Morbid obesity with BMI of 50.0-59.9, adult Hearing difficulty of left ear Migraine Depression Anxiety Asthma Surgical History No pertinent past surgical history Family History Family History Mother Bipolar affect, depressed Father Diabetes Brother Asthma Other FH: mental illness Social History Social History Household Members: Other Household Members Other:: grandmother Housing: House Alcohol intake: never Patient Tobacco Use Status: Never used Tobacco e-Cigarette/Vaping Use: Never Used Second Hand Smoke Exposure: No Advance Directives: No Advance Directives Information Provided: No Do you have a plan to hurt others: No Plan service: No Current occupational status: student Current occupational exposures/hazards: No Cognitive needs: No Hearing needs: No Vision needs: Yes (Glasses) Physical Exam ED Vital Signs: Vital Signs - 24 hr 05/10/24 19:00 05/10/24 20:31 Temperature 97.6 F 97.7 F Pulse Rate 95 86 Respiratory Rate 18 18 Blood Pressure 124/79 115/66 Pulse Oximetry 100 100 Oxygen Delivery Method Room Air Room Air BMI result Body Mass Index 52.2 Const General: cooperative, healthy appearing and no acute distress Orientation/consciousness: patient oriented x3 Limitations: no limitations HENMT Head: Yes normal to inspection and Yes atraumatic Ears: hearing grossly normal bilaterally General nose exam: Normal external nose present Face and sinus: Yes normal facial exam and No edema Mouth: no drooling Throat: Yes posterior oropharynx normal, Yes uvula midline, No peritonsillar mass, No uvula laterally displaced and No uvular edema Eyes General: appearance normal, both eyes and all related structures EOM: EOMs intact bilaterally Neck Neck: Yes normal visual inspection and Yes no meningeal signs Resp Effort & Inspection: normal respiratory effort, no respiratory distress and no stridor Auscultation: clear to auscultation bilaterally and no wheezes Cardio Rate: regular rate Heart sounds: S1 normal heart sound present and S2 normal heart sound present Skin Rashes: no rashes Wounds: no wounds Neuro General: patient oriented x3, tone normal and no meningeal signs Cranial nerves: Yes CN's II-XII intact bilaterally Gait exam (Neuro): Normal gait present Extrem General: Yes normal to inspection Course Course Course Narrative: This is a Rapid Medical Exam performed in triage by Polina Rodriguez PA-C. Full HPI, ROS and PE to be performed by primary ED provider. 23-year-old female with a past medical history of depression, anxiety, asthma, presenting to the ED complaining of right arm tingling and SOB/throat closing sensation s/p closing bag of shrimp at work [employer]. Reports known allergy to shrimp, denies having or ever using EpiPen. PE: Talking in complete sentences, no respiratory distress, lungs CTA, uvula midline Plan: IV Benadryl, Pepcid, Solu-Medrol 2014--on re-evaluation reports mild symptomatic improvement. >2035--patient remains talking in complete sentences, oropharynx WNL. Safe for discharge home at this time Results discussed with patient including worrisome signs and symptoms and strict return precautions, and when to return to the emergency department. They verbalized understanding and feel safe for discharge at this time. Medications Administered Discontinued Medications Generic Name Dose Route Start Last Admin Trade Name Kiran PRN Reason Stop Dose Admin Diphenhydramine HCl 50 mg 05/10/24 19:03 05/10/24 19:27 Diphenhydramine Hcl 50 Mg/Ml Vial IVPUSH 05/10/24 19:04 50 mg ONCE ONE Administration Famotidine 20 mg 05/10/24 19:03 05/10/24 19:27 Famotidine/Pf 20 Mg/2 Ml Vial IVPUSH 05/10/24 19:04 20 mg ONCE ONE Administration Methylprednisolone Sodium Succinate 60 mg 05/10/24 19:03 05/10/24 19:27 Methylprednisolone Sod Succ 125 Mg/2 Ml Vial IVPUSH 05/10/24 19:04 60 mg ONCE ONE Administration Medical Decision Making Medical Decision Making [facility] Narrative: 23-year-old female with past medical history depression, anxiety, asthma, presenting to the ED complaining of suspected allergic reaction s/p closing bag of shrimp at work [employer]. On exam vital signs stable, NAD, nontoxic appearing, talking in complete sentences, no respiratory distress, oropharynx WNL, uvula midline. Concern for allergic reaction vs anxiety. Evidence of anaphylaxis. Low suspicion for ACS Plan: IV Benadryl, Pepcid, Solu-Medrol, re-evaluate Please refer to course for remaining clinical decision making, interpretation of labs/imaging results, and discussions with consultants and/or family members. Differential Diagnosis Differential Diagnoses: The differential diagnosis associated with the presentation includes As above Admission/Observation Consideration of admission/observation: Escalation of care including admission/observation considered Lab Data [facility] Lab Attestation statement: I reviewed the patient's lab results. Radiology Impression Discussion of test interpretation with radiology: I have reviewed the radiologist's reading. External Record Review External record reviewed: Inpatient record, Office record, Outpatient record, Prior outpatient labs, Prior outpatient radiology, Primary care record and Outside ED record Tests considered The following testing was considered but not selected: As above Chronic Conditions Patient?s care impacted by: Other Critical Care Time Critical Care Time Critical Care Time: Yes Total Critical Care Time: 32 Attestation: I have personally provided critical care time exclusive of time spent on separately billable procedures. Time includes review of lab data, radiology results, discussion with consultants, and monitoring for potential decomp ensation. Intervention performed as documented. Discharge Plan Discharge Clinical Impression: Allergic reaction Patient Disposition: Home, Self-Care Instructions: General Allergic Reaction (ED), Allergy Testing (ED) Additional Instructions: Please have Benadryl on you at all times. You should follow-up with an mine development engineer If you develop recurrent or persistent allergy symptoms, throat closing sensation, or shortness of breath please return to the ED immediately Prescriptions: No Action albuterol sulfate 90 mcg/actuation HFA aerosol inhaler 2 puff inhalation Q4-6H PRN (Reason: shortness of breath or wheezing) Qty: 8.5 0RF (DME) Maalox, Benadry, Lidocaine See Rx Instructions .Route .MEDSUPPLY Qty: 1 0RF Rx Instructions: Please make a concoction for 180 ml. 60 cc Benadryl, 60 cc Maalox and 60 viscous lidocaine. 15 ml swish and swallow or spit every 8 hours Referrals: Froylan Blandon MD [Physician] - Tong Nelson DO [Physician] - Mike Singer PA-C [Physician Stock Patcher] - Too Abreu MD [Physician] - Denis Rodriguez MD [Primary Care Provider] - 3 days Print Language: Lao
[2024-05-10] MEDS: Famotidine/PF 20 MG/2 ML VIAL IVPUSH (19:27)
[2024-05-10] MEDS: methylPREDNISolone Sod Succ 125 MG/2 ML VIAL 60 MG IVPUSH (19:27)
[2024-05-10] MEDS: diphenhydrAMINE HCL 50 MG/ML VIAL IVPUSH (19:27)
[2024-05-10 20:31] VITALS: BP 115/66; PULSE 86; RESP 18; TEMP 36.5; O2SAT 100
[2024-05-10 20:42] VITALS: BP 115/66; PULSE 86; RESP 18; TEMP 36.5; O2SAT 100
== END 2024-05-10 20:45 | disposition home or self-care (01) ==
PROVIDERS: Emergency Provider Emergency Medicine; PCP Internal Medicine
DX: T78.40XA Allergy, unspecified, initial encounter (principal); R06.02 Shortness of breath; X58.XXXA Exposure to other specified factors, initial encounter
CPT/HCPCS: 96374; 96375; 99283; 99284; J1200; J2919

== ENCOUNTER 2024-05-26 15:18 | Outpatient (AMB) | payer OTHER, SELFPAY ==
--- NOTE | 2024-05-26 15:30 | A.OFFPC_ITS ---
Vital Signs 05/26/24 15:31 Height 5 ft 4 in Weight 299 lb 8 oz BMI 51.4 BP 120/72 Blood Pressure Location Rt brachial Position Sitting Pulse 104 H Pulse Source Pulse Oximeter Pulse Oximetry (%) 98 Oxygen Delivery Method Room Air Intake Visit Reasons: Director Of Plant Operations referral Intake Note: Patient is here to follow up on Director Of Plant Operations referral due to allergic reaction to shrimp. Requesting for referral to [employer], and therapist and Diabetes testing. Pt would like to know blood type. Machine Cage Maker Required: No Plug And Mold Finisher: Not Required per policy Accompanied by: Self / Same As Patient Allergies shrimp Allergy (Verified 05/27/24 04:35) Facial Swelling Medication List - Last Reconciled 05/27/24 by Denis Rodriguez MD albuterol sulfate 90 mcg/actuation 2 puffs inhalation Q4-6H PRN Tobacco use date assessed: 05/26/24 Dental Screening Dental Screen Date: 04/21/24 HPI Director Of Plant Operations referral HPI Details 23-year-old female presents to the offic e with a few requests. Patient was handling shrimp a few weeks ago and felt numbness in the left hand and fingers. She is requesting a referral to an medical administrative specialist. Patient was seen in an emergency room for the symptoms. No treatment or medication was offered. Patient would like to see a therapist for her anxiety. Patient would also like to make an appointment with a doll wig maker rooted hair. She is requesting a referral. [facility] Medical History Morbid obesity with BMI of 50.0-59.9, adult Hearing difficulty of left ear Migraine Depression Anxiety Asthma Surgical History No pertinent past surgical history Family History Mother Bipolar affect, depressed Father Diabetes Brother Asthma Other FH: mental illness Social History Household Members: Other Household Members Other:: grandmother Housing: House Alcohol intake: never Patient Tobacco Use Status: Never used Tobacco e-Cigarette/Vaping Use: Never Used Second Hand Smoke Exposure: No service: No Current occupational status: student Current occupational exposures/hazards: No Cognitive needs: No Hearing needs: No Vision needs: Yes (Glasses) Questionnaire Thrive Questionnaire Date Thrive assessed: 03/20/24 I am a: Patient What is your living situation today?: I choose not to answer this question Within the past 12 months, did the food you bought not last and you didn't have the money to get more?: Often true Within the past 12 months, did you worry whether your food would run out before you got money to buy more?: Often true Do you have trouble paying for medicines?: No Do you have trouble getting transportation to medical appointments?: Yes Do you have trouble paying your heating and electricity bill?: No Do you have trouble taking care of your child, family member or friend?: No Do you have trouble with day-to-day activities such as bathing, preparing meals, shopping, managing finances, etc.?: No Are you currently unemployed and looking for a job?: No Are you interested in more education?: Yes Please select the resources that you would like help with: Transportation THRIVE Score: 3 DANAE-7 AMB Questionnaire DANAE-7 Date DANAE - 7 assessed: 11/13/23 Source: Developed by Drs. Joel Ayoub, Katie Walls, Jaya Vieira and colleagues, with an educational yasmin from [employer]. Physical exam (Primary Care) Vital Signs: Last Vital Signs Pulse 104 H 05/26/24 15:31 BP 120/72 05/26/24 15:31 Pulse Ox 98 05/26/24 15:31 Oxygen Delivery Method Room Air 05/26/24 15:31 BMI result Body Mass Index 51.4 Tobacco/Smoking Status: Tobacco use Status Tobacco use date assessed 05/26/24 05/26/24 15:34 Patient Tobacco Use Status Never used Tobacco 05/26/24 15:34 e-Cigarette/Vaping Use Never Used 05/26/24 15:34 Thrive Assessment: Date of Thrive Assessment Date Thrive assessed 03/20/24 05/26/24 15:34 Const General: cooperative and healthy appearing Nutritional Appearance: well nourished Orientation/consciousness: patient oriented x3 Limitations: no limitations HENMT Head: Yes normal to inspection Eyes General: appearance normal, both eyes and all related structures Neck Neck: Yes normal visual inspection Chest Chest palpation & inspection: normal palpation of entire chest wall Resp Effort & Inspection: normal respiratory effort Neuro General: patient oriented x3 Office Procedures Flu Questionnaire Does the patient have a severe egg allergy?: No Does the patient have severe life threatening allergies?: No Does the patient have a fever or illness today?: No Has the patient ever had Guillain-Malott Syndrome?: No Has the patient ever had any past reaction to a flu shot?: No Immunizations Fluarix Triv [id number] (PF) 45 mcg (15 mcg x 3)/0.5 mL IM syringe Performing Provider: Denis Rodriguez MD [place] [facility] [place] [facility] Administered by: Ashley Mcfadden LPN on 05/26/24 15:48 Dose Route Admin Location Dispensed Lot Number Expiration Date [facility] Site Reliability Engineer 0.5 mL IM Right Deltoid 0.5 mL [id number] 01/19/25 85085-851-81 statusboom VIS Given Date VIS Provided VIS Publication Date 05/26/24 Single Vaccine 21 Eligibility Eligibility Date Funding Source Not [facility] Eligible 05/26/24 Private Coding Level of Care Code Est Pt Level 4 (32150) Complex EM visit Add On G2211 Diagnoses Anxiety F41.9 Paresthesia R20.2 Assessment & Plan Assessment & Plan (1) Anxiety: Code(s): F41.9 - Anxiety disorder, unspecified Category: Medical Plan: Community navigation has been informed about the patient's request for a therapist. A casting and curing operator referral has also been requested (2) Paresthesia: Code(s): R20.2 - Paresthesia of skin Plan: Reassurance. Patient would not benefit from seeing an medical administrative specialist. I suggested that she avoid shrimp. Orders: Orders Influenza [id number] Immunization 05/26/24 Z23 - Encounter for immunization
[2024-05-26 15:31] VITALS: BP 120/72; PULSE 104; O2SAT 98; BMI 51.4
== END 2024-05-26 16:01 | disposition home or self-care (01) ==
LOC: HO.HMCH 15:19
PROVIDERS: PCP Internal Medicine; Visit Provider Internal Medicine
DX: R20.2 Paresthesia of skin (principal); F41.9 Anxiety disorder, unspecified

== ENCOUNTER → 2024-05-26 15:18 | Outpatient (BNVA) | payer OTHER, SELFPAY | PROVIDERS: PCP Internal Medicine; Visit Provider Internal Medicine | DX: Z23 Encounter for immunization (principal); R20.2 Paresthesia of skin; F41.9 Anxiety disorder, unspecified | CPT/HCPCS: 90471; 90656; 99212 ==

== ENCOUNTER 2024-08-15 16:41 | Emergency (ER) | payer OTHER, SELFPAY ==
[2024-08-15 17:15] VITALS: BP 146/97; PULSE 94; RESP 16; TEMP 36.4; O2SAT 98; BMI 51.4
--- NOTE | 2024-08-15 17:15 | ED.GENADULT ---
HPI - General Adult General Chief complaint: General Medical Stated complaint: rectal bleeding Time Seen by Provider: 08/15/24 22:40 Source: patient Mode of arrival: ambulatory Limitations: no limitations History of Present Illness ED Provider: Dr. Kortney Vaca HPI narrative: Patient comes to the emergency room complaining of rectal bleeding. Patient states that she has had intermittent pain is bleed for several months. However, today was the worst day. Patient states that she has issues with constipation and when she needs to push hard, she bleeds. Patient denies any external itching or pain. Patient denies any weakness, lightheadedness. Related Data Previous Rx's ?Medication ?Instructions ?Recorded albuterol sulfate 90 mcg/actuation 2 puff inhalation Q4-6H PRN 08/01/24 aerosol inhaler shortness of breath or wheezing #8.5 grams Allergies Allergy/AdvReac Type Severity Reaction Status Date / Time shrimp Allergy Facial Verified 08/15/24 17:17 Swelling Review of Systems Review of Systems: Constitutional : No Weight loss, No Fever, No Chills, No Night Sweats, No Fatigue, No Malaise ENT/Mouth : No Hearing loss, No Ear Pain, No Nasal Congestion, No Sinus Pain, No Hoarseness, No sore throat, No Rhinorrhea, No Swallowing Difficulty Eyes: No Eye Pain, No Swelling, No Redness, No Foreign Body, No Discharge, No Vision Changes Cardiovascular : No Chest Pain, No SOB, No Dyspnea on Exertion, No Orthopnea, No Edema, No Palpitations Respiratory : No Cough, No Sputum, No Wheezing, No Smoke Exposure, No Dyspnea Gastrointestinal : No Nausea, No Vomiting, No Diarrhea, No Constipation, No abdominal Pain, complaining of intermittent painless rectal bleeding Genitourinary : no irregular bleeding, No Dysuria, No Urinary Frequency, No Hematuria, No Urinary Incontinence, No Urgency, No Flank Pain, No Urinary Flow Changes, No Hesitancy Musculoskeletal : No joint pain, No Myalgias, No Joint Swelling Skin : No Skin Lesions, No rash Neuro : No Weakness, No Numbness, No Paresthesias, No Loss of Consciousness, No Dizziness, No Headache Psych : No Anxiety/Panic, No Depression, No SI/HI/AH/VH, No Social Issues, Heme/Lymph: No Bruising, No Bleeding,No Lymphadenopathy Endocrine : No Polyuria, No Polydipsia, No Temperature Intolerance PMF Past Medical History Medical History Morbid obesity with BMI of 50.0-59.9, adult Hearing difficulty of left ear Migraine Depression Anxiety Asthma Surgical History No pertinent past surgical history Family History Family History Mother Bipolar affect, depressed Father Diabetes Brother Asthma Other FH: mental illness Social History Social History Household Members: Other Household Members Other:: grandmother Housing: House Alcohol intake: never Patient Tobacco Use Status: Never used Tobacco Smoked in Last 30 Days: No e-Cigarette/Vaping Use: Never Used Second Hand Smoke Exposure: No Use of substances other than those prescribed or required for medical reasons: No Advance Directives: No Advance Directives Information Provided: No Do you have a plan to hurt others: No Plan Patient : No service: No Current occupational status: student Current occupational exposures/hazards: No Cognitive needs: No Hearing needs: No Vision needs: Yes (Glasses) Physical Exam ED Vital Signs: Vital Signs - 24 hr 08/15/24 17:15 08/15/24 21:31 08/15/24 22:47 Temperature 97.6 F 97.6 F Pulse Rate 94 94 86 Respiratory Rate 16 14 16 Blood Pressure 146/97 H 129/73 124/79 Pulse Oximetry 98 98 98 Oxygen Delivery Method Room Air Room Air Room Air BMI result Body Mass Index 51.4 Const Other: Appearance: Alert. Oriented X3. No acute distress. Eyes: Pupils equal, round and reactive to light. ENT: Pharynx normal. Neck: Normal inspection. Neck supple. No lymph nodes noted. No crepitus CVS: Normal heart rate and rhythm. Pulses normal. Normal S1 and S2 Respiratory: No respiratory distress. Breath sounds normal. No Wheezing. No rales Abdomen: Soft and nontender. No rigidity. No distention. Digital rectal exam showed no blood at all Skin: Skin warm and dry. Normal skin color. Normal skin turgor. Extremities: No lower extremity edema. No Lacerations. No Rash Neuro: Oriented X 3. No motor deficit. No sensory deficit. Moving all extremities. No slurred speech. CN 2 through 12 grossly intact Psych: calm, cooperative, normal affect Course Course Course Narrative: This is a rapid medical exam performed by Mendoza Zuluaga NP: Additional HPI, ROS, PE not included below will be deferred to primary provider. Patient is a 24-year-old female presenting with complaint of bright red rectal bleeding this morning with BM. States later in the day she had vaginal bleeding as well as rectal bleeding. LMP was 1 month ago. Plan; Labs Medical Decision Making Medical Decision Making [facility] Narrative: My interpretation of labs: Patient's white blood cell count 12.8 which is chronic for the patient, normal chemistry, normal LFTs On physical exam, there was no obvious blood per rectum, but sample was heme positive I discussed with the patient that likely she has internal hemorrhoids. Patient was given the phone number for surgery, discussed with the patient that she may need ligation of the internal hemorrhoids. Overall, patient feeling completely normal, no rectal bleeding this evening. Differential Diagnosis Differential Diagnoses: The differential diagnosis associated with the presentation includes (Internal hemorrhoids, external hemorrhoids) Lab Data [facility] Lab Attestation statement: I reviewed the patient's lab results. 08/15/24 17:46 08/15/24 17:46 Labs: Lab Results 08/15/24 Range/Units 17:46 WBC 12.8 H (4.8-10.8) X10*3/uL RBC 4.95 (4.20-5.50) X10*6/uL Hgb 13.8 (12.0-16.0) g/dl Hct 42.2 (37.0-47.0) % MCV 85.3 (80.0-98.0) fL MCH 27.9 (27.0-33.0) pg MCHC 32.7 (31.0-35.0) g/dl RDW 13.0 (11.0-16.0) % Plt Count 346 (160-400) X10*3/uL MPV 9.7 (9.4-12.3) fL Immature Gran % (Auto) 0.4 (0.0-0.4) % Neut % (Auto) 71.6 (45-73) % Lymph % (Auto) 19.9 L (20-40) % [place] % (Auto) 6.2 (2-11) % Eos % (Auto) 1.4 (0-4) % Baso % (Auto) 0.5 (0-2) % Lymph # (Auto) 2.5 (1.2-4.9) X10*3/uL [place] # (Auto) 0.8 (0.1-1.2) X10*3/uL Eos # (Auto) 0.2 (0.0-0.4) X10*3/uL Baso # (Auto) 0.1 (0.0-0.2) X10*3/uL Abs Immat Gran (auto) 0.05 H (0.00-0.03) X10*3/uL Absolute Neuts (auto) 9.2 H (2.0-8.3) x10*3/uL Absolute Nucleated RBC 0.000 (0.0-0.012) X10*3/uL Nucleated RBC % (auto) 0.0 (0.0-0.2) /100WBC Sodium 141 (135-145) mmol/L Potassium 3.6 (3.3-5.1) mmol/L Chloride 111 H (96-108) mmol/L Carbon Dioxide 20 L (22-29) mmol/L Anion Gap 14 (12-20) BUN 8 L (9-16) mg/dL Creatinine 0.64 (0.5-1.4) mg/dL Estim Creat Clear Calc 188.1 Estimated GFR > 60 Random Glucose 74 (60-115) mg/dL Calcium 9.3 (8.4-10.2) mg/dL Total Bilirubin 0.3 (0.0-1.0) mg/dL AST 23 (5-31) U/L ALT 29 (0-31) U/L Alkaline Phosphatase 92 (39-117) U/L Total Protein 8.0 (6.5-8.0) g/dL Albumin 4.3 (3.5-5.0) g/dL Beta HCG, Quant < 2 mIU/mL Discharge Plan Discharge Clinical Impression: Internal hemorrhoids Patient Disposition: Home, Self-Care Instructions: Hemorrhoids (ED) Additional Instructions: Please follow-up with your primary care physician tomorrow. If you have any worsening or new symptoms, please return to the emergency room or call 911 Prescriptions: No Action albuterol sulfate 90 mcg/actuation HFA aerosol inhaler 2 puff inhalation Q4-6H PRN (Reason: shortness of breath or wheezing) Qty: 8.5 0RF Referrals: Nathanael Mandel MD [Physician] - 08/18/24 Stand Alone Forms: Work/School Release Print Language: Guyanese
[2024-08-15 17:55] LABS: MANUAL DIFF FLAG NO
[2024-08-15 18:00] LABS: Basophils Absolute Auto 0.1 X10*3/uL (0.0-0.2); Basophils Percent Auto 0.5 % (0-2); Eosinophils Absolute Auto 0.2 X10*3/uL (0.0-0.4); Eosinophils Percent Auto 1.4 % (0-4); Hematocrit 42.2 % (37.0-47.0); Hemoglobin 13.8 g/dl (12.0-16.0); Imm Gran Abs Auto 0.05 X10*3/uL (0.00-0.03); Imm Gran Pct Auto 0.4 % (0.0-0.4); Lymphocytes Absolute Auto 2.5 X10*3/uL (1.2-4.9); Lymphocytes Percent Auto 19.9 % (20-40); Mean Corpuscular HGB Conc 32.7 g/dl (31.0-35.0); Mean Corpuscular Hemoglobin 27.9 pg (27.0-33.0); Mean Corpuscular Volume 85.3 fL (80.0-98.0); Mean Platelet Volume 9.7 fL (9.4-12.3); Monocytes Absolute Auto 0.8 X10*3/uL (0.1-1.2); Monocytes Percent Auto 6.2 % (2-11); Neutrophils Absolute Auto 9.2 x10*3/uL (2.0-8.3); Neutrophils Percent Auto 71.6 % (45-73); Platelet Count 346 X10*3/uL (160-400); Red Blood Count 4.95 X10*6/uL (4.20-5.50); White Blood Count 12.8 X10*3/uL (4.8-10.8)
[2024-08-15 18:22] LABS: Alanine Aminotransferase 29 U/L (0-31); Albumin Level 4.3 g/dL (3.5-5.0); Anion Gap 14 (12-20); Aspartate Amino Transferase 23 U/L (5-31); Bilirubin Total 0.3 mg/dL (0.0-1.0); Blood Urea Nitrogen 8 mg/dL (9-16); Calcium 9.3 mg/dL (8.4-10.2); Carbon Dioxide 20 mmol/L (22-29); Chloride 111 mmol/L (96-108); Creatinine Clr Calc Pharmacy 188.1; Estimated Glomerular Filt Rate > 60; Glucose Random 74 mg/dL (60-115); HCG Quantitative < 2 mIU/mL; Potassium 3.6 mmol/L (3.3-5.1); Sodium 141 mmol/L (135-145)
[2024-08-15 18:44] LABS: Alkaline Phosphatase 92 U/L (39-117)
[2024-08-15 21:31] VITALS: BP 129/73; PULSE 94; RESP 14; O2SAT 98
[2024-08-15 22:47] VITALS: BP 124/79; PULSE 86; RESP 16; TEMP 36.4; O2SAT 98
[2024-08-15 22:59] LABS: OBS Int Ctl Valid YES; OBS1 POSITIVE (NEGATIVE)
[2024-08-15 23:33] VITALS: BP 124/79; PULSE 86; RESP 16; TEMP 36.4; O2SAT 98
== END 2024-08-15 23:34 | disposition home or self-care (01) ==
PROVIDERS: Registered Nurse Emergency; Emergency Provider Emergency Medicine; PCP Physician Assistant
DX: K64.8 Other hemorrhoids (principal); Z79.899 Other long term (current) drug therapy
CPT/HCPCS: 36415; 80053; 82272; 84702; 85025; 99283; 99284

== ENCOUNTER 2025-01-06 11:03 | Outpatient (REF) | payer OTHER, SELFPAY ==
--- OUTSIDE RECORDS SUMMARY | 2025-01-06 12:40 | XMS_ITS | Clinical Summary ---
Author Organization [facility] Address [address] [place] [phone] Phone Care Team Providers Care Linseed Oil Boiler Name Role Phone Unavailable Primary Care Provider Unavailabl e Immunizations Immunization Administration Dates Next Due DTaP 5 09/05/2005, 3,2001,2001, 2 H1N1 06/22/2009 Hep B, ped/adol 2001,2001,2001 Hib (PRP-T) 01/05/2003,2001,2001 ,2001 IPV 09/05/2005,01/05/2003,2001 ,2001 MMR 09/05/2005,01/05/2003 Pneumococcal Conjugate 01/05/2003,2001 Social History Tobacco Use Types Packs/Day Years Used Date Smoking Tobacco: Never Assessed Comments Unknown Sex and Gender Information Value Date Recorded Sex Assigned at Not on file Legal Sex Female 4:28 PM EDT Gender Identity Not on file Sexual Orientation Not on file Plan of Treatment Health Maintenance Due Date Last Done Comments DTaP,Tdap,and Td Vaccines (6 - Tdap) 2012 09/05/2005, 01/05/2003, 2001, Additional history exists Varicella Vaccines (1 of 2 - 13+ 2-dose series) 2014 HPV Vaccines (1 - 3-dose series) 2016 Men B Vaccine (1 of 2 - Standard) 2017 Influenza Vaccines (#1) 2024 COVID-19 Vaccine (2 - season) 2024 09/08/2022 Hepatitis B Vaccines Completed 2001, 2001, 2001 HIB Vaccines Completed 01/05/2003, 10/2001, 2001, Additional history exists Pneumococcal Vaccine Aged Out 01/05/2003, 12/25/19 02 No longer eligible based on patient's age to complete this topic IPV Vaccines Completed 09/05/2005, 12/21, 2001, Additional history exists MMR Vaccines Completed 09/05/2005, 01/05/2003 Hepatitis A Vaccines Aged Out No long er eligible based on patient's age to complete this topic Meningococcal Vaccine Aged Out No hernandez apurva eligible based on patient's age to complete this topic
[2025-01-06 12:44] LABS: Iron 61 mcg/dL (30-160); Percent Iron Saturation 17 % (15-50); Total Iron Binding Capacity 350 mcg/dL (228-428); Unsaturated Iron Binding 289 ug/dL
[2025-01-06 13:01] LABS: Free T4 (Free Thyroxine) 1.01 ng/dL (0.71-1.85); Vitamin D 25-OH Total 15.4 ng/mL (>30)
[2025-01-06 13:11] LABS: Vitamin B12 230 pg/mL (200-900)
== END 2025-01-06 11:04 | disposition home or self-care (01) ==
LOC: HO.LAB 11:03
PROVIDERS: PCP Physician Assistant
DX: Z79.899 Other long term (current) drug therapy (principal)
CPT/HCPCS: 36415; 82306; 82607; 83540; 84439; 84443

== ENCOUNTER 2025-02-19 15:03 | Outpatient (AMB) | payer OTHER, SELFPAY ==
--- NOTE | 2025-02-19 15:05 | A.OFFPC_ITS ---
Vital Signs 02/19/25 15:10 Height 5 ft 4 in Weight 322 lb 6 oz BMI 55.3 BP 134/64 Blood Pressure Location Rt brachial Position Sitting Respiration 14 Pulse 96 Pulse Source Pulse Oximeter Temp 98.8 F Temp Source Oral Pulse Oximetry (%) 98 Oxygen Delivery Method Room Air Intake Visit Reasons: Referrals Intake Note: New patent visit. Forestry Patrolman Required: No Allergies shrimp Allergy (Verified 02/19/25 15:06) Facial Swelling Medication List - Last Reconciled 02/19/25 by Sarah Pereyra PA-C albuterol sulfate 90 mcg/actuation 2 puffs inhalation Q4-6H PRN cholecalciferol (vitamin D3) 25 mcg PO DAILY cyanocobalamin (vitamin B-12) 1,000 mcg sublingual DAILY hydroxyzine HCl 25 mg PO BEDTIME lamotrigine 25 mg PO DAILY Tobacco use date assessed: 02/19/25 Dental Screening Dental Screen Date: 04/21/24 Did you have a dental visit in the last 12 months?: Yes Did you have a dental problem in the last 6 months where you did not have access to dental care?: No Was dental information given to patient?: Patient has dentist HPI Referrals HPI Details Pt is a 24 y/o female who presents today to [facility]. She is transferring internally. She states she has a hx of anxiety, depression, and adhd. Pysch: She just saw a psychiatrist Dr. Lowe and is currently trying lamotrigine and hydroxyzine. She states that these meds are new to her and just over the last month. She states that she has never taken other anti anxiety or depression medications. No SI/HI. General: currently following with weight management at [facility] but pt prefers to try medication over surgery. She has been eating more protein and cut out carbs. She states she is gaining weight despite following with a informatics nurse specialist. She has tried low carb, fasting, calorie restricting and exercise. She is currently w orking out every other day for an hour. In the past she was able to lose 25 lbs. The lowest she has ever weighed was 183 with that 25 lb weight loss and then slowly gained the weight back and then some. HEENT: Had hearing test done with audiology and was requesting a referral to ENT. She says that she has decreased hearing in her left ear and it has been like this for the last couple years. GI: rectal pain and bleeding from a hemorrhoid x 1 year. It flares regularly and she has tried otc creams and has gone to ED for it in the past and they told her hemorrhoids. She says that she would like to see someone to have this actually removed. -reports maternal grandfather had colon ca. 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 [facility] Medical History Morbid obesity with BMI of 50.0-59.9, adult Hearing difficulty of left ear Migraine Depression Anxiety Asthma Surgical History No pertinent past surgical history Family History Mother Bipolar affect, depressed Father Diabetes Brother Asthma Other FH: mental illness Social History Household Members: Other Household Members Other:: grandmother Housing: House Alcohol intake: never Patient Tobacco Use Status: Never used Tobacco e-Cigarette/Vaping Use: Never Used Second Hand Smoke Exposure: No service: No Current occupational status: student Current occupational exposures/hazards: No Cognitive needs: No Hearing needs: No Vision needs: Yes (Glasses) Questionnaire PHQ-9 Over the last 2 weeks, how often have you been bothered by any of the following problems? 1. Little interest or pleasure in doing things: several days 2. Feeling down, depressed, or hopeless: more than half the days 3. Trouble falling or staying asleep, or sleeping too much: nearly every day 4. Feeling tired or having little energy: nearly every day 5. Poor appetite or overeating: more than half the days 6. Feeling bad about yourself - or that you are a failure or have let yourself or your family down: several days 7. Trouble concentrating on things, such as reading the newspaper or watching television: nearly every day 8. Moving or speaking so slowly that other people could have noticed. Or the opposite - being so fidgety or restless that you have been moving around a lot more than usual: several days 9. Thoughts that you would be better off or of hurting yourself in some way: not at all Total score: 16 Depression Screening Interpretation: Positive Depression Screening Follow-up: Existing condition, In treatment and Follow-up Visit Requested Depression Screening Done: Yes 41325 - PHQ-9 Billing: Yes Source: Developed by Drs. Joel Ayoub, Katie Walls, Jaya Vieira and colleagues, with an educational yasmin from [employer]. Thrive Questionnaire Date Thrive assessed: 03/20/24 I am a: Patient What is your living situation today?: I have a place to live, but I am worried about losing it in the future Within the past 12 months, did the food you bought not last and you didn't have the money to get more?: Often true Within the past 12 months, did you worry whether your food would run out before you got money to buy more?: Often true Do you have trouble paying for medicines?: No Do you have trouble getting transportation to medical appointments?: No Do you have trouble paying your heating and electricity bill?: Yes Do you have trouble taking care of your child, family member or friend?: Yes Do you have trouble with day-to-day activities such as bathing, preparing meals, shopping, managing finances, etc.?: Yes Are you currently unemployed and looking for a job?: No Are you interested in more education?: Yes Please select the resources that you would like help with: None Currently or been in a relationship where the following occur: I choose not to answer THRIVE Score: 4 AUDIT C Alcohol Use Questionnaire (AUDIT-C) 1. How often do you have a drink containing alcohol?: Never 3. How often do you have six or more drinks on one occasion?: Never Total Score: 0 DANAE-7 AMB Questionnaire DANAE-7 Date DANAE - 7 assessed: 11/13/23 Feeling nervous, anxious, or on edge: 3 = Nearly every day Not being able to stop or control worryin = Nearly every day Worrying too much about different things: 3 = Nearly every day Trouble relaxin = Nearly every day Being so restless that it is hard to sit still: 3 = Nearly every day Becoming easily annoyed or irritable: 3 = Nearly every day Feeling afraid as if something awful might happen: 3 = Nearly every day Total DANAE-7 score (0-4 normal; 5-9 mild; 10-14 moderate; 15-21 severe): 21 Source: Developed by Drs. Joel Ayoub, Katie Walls, Jaya Vieira and colleagues, with an educational yasmin from [employer]. DANAE-7 Assessment Billing DANAE-7 Assessment Tool: DANAE-7 Assessment 82744 Physical exam (Primary Care) Vital Signs: Last Vital Signs Temp 98.8 F 02/19/25 15:10 Pulse 96 02/19/25 15:10 Resp 14 02/19/25 15:10 BP 134/64 02/19/25 15:10 Pulse Ox 98 02/19/25 15:10 Oxygen Delivery Method Room Air 02/19/25 15:10 BMI result Body Mass Index 55.3 Tobacco/Smoking Status: Tobacco use Status Tobacco use date assessed 02/19/25 02/19/25 15:06 Patient Tobacco Use Status Never used Tobacco 02/19/25 15:06 e-Cigarette/Vaping Use Never Used 02/19/25 15:06 PHQ-9: PHQ-9 Score PHQ-9: Total score 16 02/19/25 15:20 Depression Screening Interpretation: Positive Depression Screening Follow-up: Existing condition, In treatment and Follow-up Visit Requested Thrive Assessment: Date of Thrive Assessment Date Thrive assessed 03/20/24 02/19/25 15:06 Currently or been in a relationship where the following occur: I choose not to answer Const Orientation/consciousness: patient oriented x3 HENMT Ears: hearing grossly normal bilaterally Neck Thyroid: Thyroid normal Lymphatic: no lymphadenopathy noted Resp Auscultation: clear to auscultation bilaterally Cardio Rate: regular rate Rhythm: regular rhythm Heart sounds: S1 normal heart sound present and S2 normal heart sound present GI Inspection: Yes normal to inspection Palpation (GI): Soft to palpation and Other GI palpation findings present (nont tom, no cva tenderness) Auscultation: normoactive bowel sounds Rectal Exam - Female: normal sphincter tone and hemorrhoids Skin General skin exam: no rashes or lesions noted Neuro General: patient oriented x3, gait normal and no focal motor deficits Results Reviewed Results Reviewed: Laboratory Tests 08/15/24 01/06/25 17:46 11:24 Sodium 141 Potassium 3.6 Chloride 111 H Carbon Dioxide 20 L Anion Gap 14 BUN 8 L Creatinine 0.64 Estimated GFR > 60 Random Glucose 74 Calcium 9.3 Iron 61 TIBC 350 % Saturation 17 Unsat Iron Binding 289 Total Bilirubin 0.3 AST 23 ALT 29 Alkaline Phosphatase 92 Albumin 4.3 Vitamin B12 230 25-OH Vitamin D Total 15.4 L TSH 1.80 Coding Level of Care Code Est Pt Level 4 (35905) Complex EM visit Add On G2211 Diagnoses Vitamin D deficiency E55.9 Vitamin B12 deficiency E53.8 Morbid obesity with BMI of 50.0-59.9, adult E66.01; Z68.43 ADHD F90.9 Hearing difficulty of left ear H91.92 External hemorrhoid K64.4 Dyslipidemia E78.5 Additional Codes DANAE-7 Assessment Billing - DANAE-7 Assessment Tool: DANAE-7 Assessment 27445 ([id number]) PHQ-9 - 17556 - PHQ-9 Billing: Yes ([id number]) Assessment & Plan Assessment & Plan (1) Vitamin D deficiency: Code(s): E55.9 - Vitamin D deficiency, unspecified Category: Medical Plan: Currently on vitamin-D. We will continue to monitor (2) Vitamin B12 deficiency: Code(s): E53.8 - Deficiency of other specified B group vitamins Category: Medical Plan: As above. (3) Morbid obesity with BMI of 50.0-59.9, adult: Code(s): E66.01 - Morbid (severe) obesity due to excess calories; Z68.43 - Body mass index [BMI] 50.0-59.9, adult Category: Medical Plan: We will try Wegovy. We discussed risks and benefits and adverse effects of this medication. Advised to continue with weight management. She was also encouraged to continue with the diet and lifestyle modifications. (4) ADHD: Code(s): F90.9 - Attention-deficit hyperactivity disorder, unspecified type Category: Medical Plan: Following with Psychiatry. (5) Hearing difficulty of left ear: Code(s): H91.92 - Unspecified hearing loss, left ear Category: Medical Plan: Referral to ENT (6) External hemorrhoid: Code(s): K64.4 - Residual hemorrhoidal skin tags Category: Medical Plan: Referral to Colorectal surgery (7) Dyslipidemia: Code(s): E78.5 - Hyperlipidemia, unspecified Category: Medical Plan: Labs ordered today. We will follow up pending test results Orders: Orders Complete Blood Count Auto Diff 02/19/25 E66.01 - Morbid (severe) obesity due to excess calories, E78.5 - Hyperlipidemia, unspecified, K64.4 - Residual hemorrhoidal skin tags, Z68.43 - Body mass index [BMI] 50.0-59.9, adult Comprehensive [place]. Panel Fast 02/19/25 E66.01 - Morbid (severe) obesity due to excess calories, E78.5 - Hyperlipidemia, unspecified, K64.4 - Residual hemorrhoidal skin tags, Z68.43 - Body mass index [BMI] 50.0-59.9, adult Lipid Panel 02/19/25 E66.01 - Morbid (severe) obesity due to excess calories, E78.5 - Hyperlipidemia, unspecified, K64.4 - Residual hemorrhoidal skin tags, Z68.43 - Body mass index [BMI] 50.0-59.9, adult TSH reflex Free T4 02/19/25 E66.01 - Morbid (severe) obesity due to excess calories, E78.5 - Hyperlipidemia, unspecified, K64.4 - Residual hemorrhoidal skin tags, Z68.43 - Body mass index [BMI] 50.0-59.9, adult Hemoglobin A1c 02/19/25 E66.01 - Morbid (severe) obesity due to excess calories, E78.5 - Hyperlipidemia, unspecified, K64.4 - Residual hemorrhoidal sk in tags, R73.01 - Impaired fasting glucose, Z68.43 - Body mass index [BMI] 50.0- 59.9, adult Referrals Ear/Nose/Throat Referral H91.92 - Unspecified hearing loss, left ear BILINGUAL OFFICE ASSISTANT Referral Z01.419 - Encounter for gynecological examination (general) (routine) without abnormal findings Colon & Rectal Referral K64.4 - Residual hemorrhoidal skin tags Medications: New semaglutide (weight loss) (Carl) administer weeks 1 through 4 of therapy 0.25 mg (0.5 mL) subcut QWEEK 2 mL 1RF hydrocortisone 2.5% (Anusol-HC) 1 appl ME BID-QID PRN 30 grams 2RF itching 10 days
--- OUTSIDE RECORDS SUMMARY | 2025-02-19 15:09 | XMS_ITS | Clinical Summary ---
Author Organization [facility] Address [address] [place] [id number] Phone Care Team Providers Care Gallery Manager Name Role Phone Unavailable Primary Care Provider [...] Vaccine (1 of 2 - Standard) 2017 COVID-19 Vaccine (2 - season) 2024 09/08/2022 Influenza Vaccines (#1) 2025 Hepatitis B Vaccines Completed 2001, 2001, 2001 [...]
--- OUTSIDE RECORDS SUMMARY | 2025-02-19 15:09 | XMS_ITS | Clinical Summary ---
Author Organization [address] [place] [address] Address [address] [place] [address] Phone Care Team Providers Care Carton Waxing Machine Operator Name Role Phone Denis Rodriguez MD Primary Care Provider [phone] Allergies No known active allergies Medications Ventolin HFA 90 mcg/actuation inhaler INHALE 2 PUFFS EVERY 4 TO 6 HOURS NEEDED FOR SHORTNESS OF BREATH OR FOR WHEEZE Active Active Problems Problem Noted Date Diagnosed Date Class 3 severe obesity witho ut serious comorbidity with body mass index (BMI) of 50.0 to 59.9 in adult (CMS/HCC V24, CMS/[facility] V28) 02/02/2025 Class 3 severe obesity witho ut serious comorbidity with body mass index (BMI) of 50.0 to 59.9 in adult (CMS/HCC V24, CMS/HCC V28) 06/23/2024 Encounters Date Type Department Care Team Description 02/02/2025 8:30 AM EDT Telemedicine Bariatric Surgery [facility] [address] [facility] [place] [address] Class 3 severe obesity without serious comorbidity with body mass index (BMI) of 50.0 to 59.9 in adult, unspecified obesity type (CMS/HCC V24, CMS/HCC V28) (Primary Dx) from Last 3 Months Social History Tobacco Use Types Packs/Day Years Used Date Smoking Tobacco: Never Assessed Comments Unknown Sex and Gender Information Value Date Recorded Sex Assigned at Not on file Legal Sex Female 11:06 AM EDT Gender Identity Not on file Sexual Orientation Not on file Last Filed Vital Signs Vital Sign Reading Time Taken Comments Blood Pressure 109/75 06/11/2024 10:32 AM EST Pulse 77 06/11/2024 10:32 AM EST Temperature 36.8 C (98.2 F) 06/11/2024 10:32 AM EST Respiratory Rate - - Oxygen Saturation - - Inhaled Oxygen Concentration - - Weight 142 kg (314 lb) 02/02/2025 8:00 AM EDT Height 162.6 cm (5' 4 ) 06/11/2024 10:32 AM EST Body Mass Index 53.9 06/11/2024 10:32 AM EST Plan of Treatment Upcoming Encounters Date Type Department Care Team (Late st Contact Info) Description 04/24/2025 8:30 AM EDT Telemedicine Bariatric Surgery - [address] [place] [address] Deedee Aviles, RD [address] [facility] [address] [place] [address] Health Maintenance Due Date Last Done Comments Gonorrhea/Chlamydia Screening 2001 Meningococcal B Vaccine (1 of 2 - Standard) 2017 Cervical Cancer Screening: Pap Smear 2022 DTaP,Tdap,and Td Vaccines (7 - Td or Tdap) 09/24/2022 09/24/2012, 09/05/2005, 09/05/2005, Additional history exists Hepatitis C Screening 02/22/2024 Social Influencers of Health Screening 02/22/2024 COVID-19 Vaccine ( season) 2024 09/08/2022, 01/12/2021, 12/22/2020 Depression Screening 07/23/2024 Influenza Vaccine (#1) 2025 , 05/18/2020, 05/12/2016, Additional history exists Cholesterol Screening (Lipid Panel) 07/25/2029 07/25/2024 Hepatitis B Vaccines Completed 2001, 2001, 2001 HIB Vaccines Completed 01/05/2003, 12/2002, 2001, Additional history exists Pneumococcal Vaccine: Pediatrics (0 to 5 Years) and At-Risk Patients (6 to 49 Years) Aged Out 01/05/2003, 2001 No longer eligibl e based on patient's age to complete this topic IPV Vaccines Completed 09/05/2005, 12/21, 2001, Additional history exists MMR Vaccines Completed 09/05/2005, 01/05/2003 HPV Vaccines Completed 05/12/2016, 12/22, 09/24/2012 Hepatitis A Vaccines Completed 01/17/2019, 01/11/20 16 Meningococcal ACWY Vaccine Completed 01/17/2019, HIV Screening Completed 09/27/2020 RSV Immunization Patients Under 20 months Aged Out No longer eligible based on patient's age to complete this topic Varicella Vaccines Aged Out No longer eligible based on patient's age to complete this topic Procedures Procedure Name Priority Date/Time Associated Diagnosis Comments LIPID PANEL WITH REFLEX TO DIRECT LDL Routine 07/25/2024 11:15 AM EST Class 3 severe obesity due to excess calories with body mass index (BMI) of 50.0 to 59.9 in adult, unspecified whether serious comorbidity present ([facility] V24, [facility] V28) from Last 3 Months or Most Recently Relevant to Health Maintenance Results * (ABNORMAL) Lipid panel with reflex to direct LDL (07/25/2024 11:15 AM EST) Cholesterol 167 0 - 200 mg/dL LAB CHEMISTRY METHOD 07/25/2024 3:34 PM [facility] Triglycerides 80 0 - 150 mg/dL LAB CHEMISTRY METHOD 07/25/2024 3:34 PM [facility] HDL 39(L) >=40 mg/dL LAB CHEMISTRY METHOD 07/25/2024 3:34 PM [facility] LDL Calculated 112(H) 0 - 100 mg/dL LAB CHEMISTRY METHOD 07/25/2024 3:34 PM [facility] VLDL Cholesterol Sadiq 16 mg/dL LAB CHEMISTRY METHOD 07/25/2024 3:34 PM [facility] Non HDL Chol. (LDL+VLDL) 128 <145 mg/dL LAB CHEMISTRY METHOD 07/25/2024 3:34 PM EST [facility] Chol/HDL Ratio 4.3 0.0 - 4.4 LAB CHEMISTRY METHOD 07/25/2024 3:34 PM EST [facility] Blood Venous blood specimen / Unknown Venipuncture / Unknown 07/25/2024 11:15 AM EST 07/25/2024 11:15 AM EST us Adrianna SERRANO LAB BLOOD ORDERABLES Final R esult [facility] [address] [place] [address], from Last 3 Months or Most Recently Relevant to Health Maintenance Insurance [facility] [employer] Care Teams Carton Waxing Machine Operator Relationship Specialty Start Date End Date Denis Rodriguez MD [facility] [address] [place] [address] [address] [facility] [place] [address] PCP - General 03/28/24
[2025-02-19 15:10] VITALS: BP 134/64; PULSE 96; RESP 14; TEMP 37.1; O2SAT 98; BMI 55.3
== END 2025-02-19 15:34 | disposition home or self-care (01) ==
LOC: HO.HMCFM 15:04
PROVIDERS: PCP Physician Assistant; Visit Provider Physician Assistant
DX: E55.9 Vitamin D deficiency, unspecified (principal); E53.8 Deficiency of other specified B group vitamins; E66.01 Morbid (severe) obesity due to excess calories; Z68.43 Body mass index [BMI] 50.0-59.9, adult; F90.9 Attention-deficit hyperactivity disorder, unspecified type; H91.92 Unspecified hearing loss, left ear; K64.4 Residual hemorrhoidal skin tags; E78.5 Hyperlipidemia, unspecified

== ENCOUNTER → 2025-02-19 15:03 | Outpatient (BNVA) | payer OTHER, SELFPAY | PROVIDERS: PCP Physician Assistant; Visit Provider Physician Assistant | DX: E66.01 Morbid (severe) obesity due to excess calories (principal); F41.9 Anxiety disorder, unspecified; E55.9 Vitamin D deficiency, unspecified; F32.A Depression, unspecified; F90.9 Attention-deficit hyperactivity disorder, unspecified type; E53.8 Deficiency of other specified B group vitamins; H91.92 Unspecified hearing loss, left ear; K64.4 Residual hemorrhoidal skin tags; E78.5 Hyperlipidemia, unspecified; Z68.43 Body mass index [BMI] 50.0-59.9, adult | CPT/HCPCS: 96127; 99212 ==

== ENCOUNTER 2025-02-27 13:01 | Outpatient (REF) | payer OTHER, SELFPAY ==
--- OUTSIDE RECORDS SUMMARY | 2025-02-27 13:03 | XMS_ITS | Clinical Summary ---
Author Organization [employer] Address [address] [place] [address] [address] [place] [address] Care Team Providers Care Switch Inspector Name Role Phone Unavailable Primary Care Provider Unavailabl e Immunizations Immunization Administration Dates Next Due Pfizer Covid-19 Vaccine 12+ Bivalent 09/08/2022 Social History Tobacco Use Types Packs/Day Years Used Date Smoking Tobacco: Never Assessed Comments Unknown Sex and Gender Information Value Date Recorded Sex Assigned at Female 05/22/2022 10:20 AM EDT Legal Sex Female 10:20 AM EDT Gender Identity Female 05/22/2022 10:20 AM EDT Sexual Orientation Choose not to disclose 2021 10:20 AM EDT Last Filed Vital Signs Vital Sign Reading Time Taken Comments Blood Pressure 126/78 04/18/2021 12:09 AM EDT Pulse 84 04/18/2021 12:09 AM EDT Temperature - - Respiratory Rate - - Oxygen Saturation - - Inhaled Oxygen Concentration - - Weight 133 kg (292 lb 12.8 oz) 04/18/2021 12:09 AM EDT Height 162.6 cm (5' 4 ) 04/18/2021 12:09 AM EDT Body Mass Index 50.26 04/18/2021 12:09 AM EDT Plan of Treatment Health Maintenance Due Date Last Done Comments Depression Screening 2001 SDOH Screening 2001 Disability Screening 2001 Alcohol/Substance Use Screening 2013 Tobacco Screening 2013 Family Planning (PISQ) 2016 Meningococcal B Vaccine (1 of 2 - Standard) 2017 Pneumococcal Vaccine: Pediatrics (0 to 5 Years) and At-Risk Patients (6 to 49) Years (1 of 2 - PCV) 2020 01/05/2003, 2001 Chlamydia and Gonorrhea Screening 09/29/2021 09/29/2020 Pap Smear 2022 DTaP/Tdap/Td Vaccines (7 - Td or Tdap) 09/24/2022 09/24/2012, 09/05/2005, 01/05/2003, Additional history exists COVID-19 Vaccine ( season) 2024 09/08/2022, 01/12/2021, 12/22/2020 Influenza Vaccine (#1) 2025 , 05/12/2016, 05/26/2014, Additional history exists Zoster Vaccines (1 of 2) 2051 RSV Patients and Patients Aged 60 years or older (1 - 1-dose 75+ series) 2076 Hepatitis B Vaccines Completed 2001, 2001, 2001 HIB Vaccines Completed 01/05/2003, 12/2002, 2001, Additional history exists IPV Vaccines Completed 09/05/2005, 12/21, 2001, Additional history exists HPV Vaccines Completed 05/12/2016, 12/22, 09/24/2012 Hepatitis A Vaccines Completed 01/17/2019, 01/11/20 16 Meningococcal Vaccine Completed 01/17/2019, 013 HIV Screening Completed 09/27/2020 Hepatitis C Screening Completed 09/27/2020 RSV under 20 months Aged Out No longe r eligible based on patient's age to complete this topic Rotavirus Vaccines Aged Out No longer eligible based on patient's age to complete this topic Procedures Procedure Name Priority Date/Time Associated Diagnosis Comments ZZZ HISTORICAL CHLAMYDIA/N. GONORRHOEAE RNA, TMA, UROGENITAL Routine 09/29/2020 7:01 AM EST ZZZ HISTORICAL HEPATITIS C AB W/REFL TO HCV RNA, QN, PCR Routine 09/27/2020 1:04 PM EST HIV 1/2 ANTIGEN/ANTIBODY, FOURTH GENERATION W/RFL Routine 09/27/2020 1:04 PM EST from Last 3 Months or Most Recently Relevant to Health Maintenance Results * CHLAMYDIA/N. GONORRHOEAE RNA, TMA, UROGENITAL (09/29/2020 7:01 AM EST) Chlamydia trachomatis RNA, TMA, Urogenital NOT DETECTED NOT DETECTED [facility] COMMENT SEE [facility]MENT [facility] Comment: The analytical performance characteristics of this assay, when used to test SurePath(TM) specimens have been determined by [employer]. The modifications have not been cleared or approved by the FDA. This assay has been validated pursuant to the CLIA regulations and is used for clinical purposes. For additional information, please refer to https://[employer].EMCAS/faq/SWG302 (This link is being provided for information/ educational purposes only.) NO COLLECTION DATE RECEIVED. WE HAVE USED THE DATE THE SPECIMEN WAS RECEIVED BY THIS LABORATORY THE COLLECTION DATE. IF THIS IS INCORRECT, PLEASE CONTACT CLIENT SERVICES. PHONE NUMBER: Neisseria gonorrhoeae RNA, TMA, Urogenital NOT DETECTED NOT DETECTED [facility] 09/29/2020 7:01 AM EST us Amira Lyles MD HISTORICAL/NON ORDERABLE ALFONSO SCHUMACHER Final Result [facility] [address] * HEPATITIS C AB W/REFL TO HCV RNA, QN, PCR (09/27/2020 1:04 PM EST) Pathologist [facility] HEPATITIS C ANTIBODY NON-REACT BARB NON-REACT BARB [facility] INDEX 0.01 <1.00 [facility] Comment: HCV antibody was non-reactive. There is no laboratory evidence of HCV infection. In most cases, no further action is required. However, if recent HCV exposure is suspected, a test for HCV RNA (test code 48438) is suggested. For additional information please refer to http://[employer].EMCAS/faq/EOX85d4 (This link is being provided for informational/ educational purposes only.) 09/27/2020 1:04 PM EST Amira Lyles MD HISTORICAL/NON ORDERABLE LA BS Final Result Performing Organization Address [facility]/ZIP Co de Phone Number [facility] [address] * HIV 1/2 ANTIGEN/ANTIBODY,FOURTH GENERATION W/RFL (09/27/2020 1:04 PM EST) HIV-1/2 ANTIGEN AND ANTIBODIES, 4TH GENERATION W/ REFLEX NON-REACT BARB NON-REACT BARB [facility] Comment: HIV-1 antigen and HIV-1/HIV-2 antibodies were not detected. There is no laboratory evidence of HIV infection. PLEASE NOTE: This information has been disclosed to you from records whose confidentiality may be protected by state law. If your state requires such protection, then the state law prohibits you from making any further disclosure of the information without the specific written consent of the person to whom it pertains, or as otherwise permitted by law. A general authorization for the release of medical or other information is NOT sufficient for this purpose. For additional information please refer to http://education.EMCAS/faq/DUA753 (This link is being provided for informational/ educational purposes only.) The performance of this assay has not been clinically validated in patients less than 2 years old. 09/27/2020 1:04 PM EST Amira Lyles MD LAB BLOOD ORDERABLES Final Result Performing Organization Address City/[facility]/ZIP Co de Phone Number [facility] [address] from Last 3 Months or Most Recently Relevant to Health Maintenance Insurance [facility] STANDARD
--- OUTSIDE RECORDS SUMMARY | 2025-02-27 13:03 | XMS_ITS | Clinical Summary ---
Author Organization [facility] Address [address] [place] [id number] Phone Care Team Providers Care Cable Tool Operator Name Role Phone Unavailable Primary Care Provider [...]
--- OUTSIDE RECORDS SUMMARY | 2025-02-27 13:03 | XMS_ITS | Clinical Summary ---
Author Organization [address] [place] [address] Address [address] [place] [address] Phone Care Team Providers Care Research Biologist Name Role Phone Denis Rodriguez MD Primary Care Provider [phone] Allergies No known active allergies Medications Ventolin HFA 90 mcg/actuation inhaler INHALE 2 PUFFS EVERY 4 TO 6 HOURS NEEDED FOR SHORTNESS OF BREATH OR FOR WHEEZE Active Active Problems Problem Noted Date Diagnosed Date Class 3 severe obesity witho ut serious comorbidity with body mass index (BMI) of 50.0 to 59.9 in adult (CMS/HCC V24, CMS/[facility] V28) 02/02/2025 Class 3 severe obesity witho ut serious comorbidity with body mass index (BMI) of 50.0 to 59.9 in adult (CMS/HCC V24, CMS/HCC V28) 06/23/2024 Encounters Date Type Department Care Team Description 02/02/2025 8:30 AM EDT Telemedicine Bariatric Surgery [facility] [address] [facility] [address] [place] [address] Class 3 [...] 8:30 AM EDT Telemedicine Bariatric Surgery - [address] [place] [address] Deedee Aviles, RD [address] [facility] [address] [place] [address] Health Maintenance Due Date Last [...] in adult, unspecified whether serious comorbidity present ([facility] V24, [facility] V28) from Last 3 Months or Most Recently Relevant to Health Maintenance Results * (ABNORMAL) Lipid panel with reflex to direct LDL (07/25/2024 11:15 AM EST) Cholesterol 167 0 - 200 mg/dL LAB CHEMISTRY METHOD 07/25/2024 3:[address] [facility] Triglycerides 80 0 - 150 mg/dL LAB CHEMISTRY METHOD 07/25/2024 3:[address] [facility] HDL 39(L) >=40 mg/dL LAB CHEMISTRY METHOD 07/25/2024 3:[address] [facility] LDL Calculated 112(H) 0 - 100 mg/dL LAB CHEMISTRY METHOD 07/25/2024 3:[address] [facility] VLDL Cholesterol Sadiq 16 mg/dL LAB CHEMISTRY METHOD 07/25/2024 3:[address] [facility] Non HDL Chol. (LDL+VLDL) 128 <145 mg/dL LAB CHEMISTRY METHOD 07/25/2024 3:34 PM EST [facility] Chol/HDL Ratio 4.3 0.0 - 4.4 LAB CHEMISTRY METHOD 07/25/2024 3:34 PM EST [facility] Blood Venous blood specimen / Unknown Venipuncture / Unknown 07/25/2024 11:15 AM EST 07/25/2024 11:15 AM EST us Adrianna SERRANO LAB BLOOD ORDERABLES Final R esult [facility] [address] [place] [address], from Last 3 Months or Most Recently Relevant to Health Maintenance Insurance [facility] [place] [address] Care Teams Research Biologist Relationship Specialty Start Date End Date Denis Rodriguez MD [facility] [address] [place] [address] [address] [place] [address] PCP - General 03/28/24
[2025-02-27 13:22] LABS: MANUAL DIFF FLAG NO
[2025-02-27 14:11] LABS: Appearance Urine Clear; Glucose Urine UA Negative (Negative); PH 6.5 (5.0-9.0); Specific Gravity - Urine 1.020 (1.005-1.025); UMIC TRIGGER UA YES
[2025-02-27 14:19] LABS: Hematocrit 41.6 % (37.0-47.0); Hemoglobin 13.4 g/dl (12.0-16.0); Imm Gran Abs Auto 0.04 X10*3/uL (0.00-0.03); Imm Gran Pct Auto 0.3 % (0.0-0.4); Lymphocytes Absolute Auto 3.0 X10*3/uL (1.2-4.9); Mean Corpuscular HGB Conc 32.2 g/dl (31.0-35.0); Mean Corpuscular Hemoglobin 27.3 pg (27.0-33.0); Mean Corpuscular Volume 84.7 fL (80.0-98.0); NRBC Abs Auto 0.000 X10*3/uL (0.0-0.012); NRBC Pct Auto 0.0 /100WBC (0.0-0.2); Platelet Count 360 X10*3/uL (160-400); Red Blood Count 4.91 X10*6/uL (4.20-5.50); White Blood Count 11.9 X10*3/uL (4.8-10.8)
[2025-02-27 14:26] LABS: Hemoglobin A1C 136.1520 umol/L; Total Hemoglobin (HGBA1C) 3515.6819 umol/L
[2025-02-27 14:58] LABS: Alanine Aminotransferase 51 U/L (0-31); Albumin Level 4.4 g/dL (3.5-5.0); Alkaline Phosphatase 101 U/L (39-117); Anion Gap 11 (12-20); Aspartate Amino Transferase 34 U/L (5-31); Blood Urea Nitrogen 6 mg/dL (9-16); Calcium 8.8 mg/dL (8.4-10.2); Carbon Dioxide 24 mmol/L (22-29); Chloride 111 mmol/L (96-108); Cholesterol 167 mg/dL (<200); Estimated Glomerular Filt Rate > 60; HDL Cholesterol 35 mg/dL (>40); Potassium 3.7 mmol/L (3.3-5.1); Sodium 142 mmol/L (135-145); Total Protein 7.2 g/dL (6.5-8.0); Triglycerides 89 mg/dL (<150)
== END 2025-02-27 13:02 | disposition home or self-care (01) ==
LOC: HO.LAB 13:01
PROVIDERS: Internal Medicine; PCP Physician Assistant; Visit Provider Physician Assistant
DX: E66.01 Morbid (severe) obesity due to excess calories (principal); R73.01 Impaired fasting glucose; E78.5 Hyperlipidemia, unspecified; K64.4 Residual hemorrhoidal skin tags; Z68.43 Body mass index [BMI] 50.0-59.9, adult
CPT/HCPCS: 36415; 80053; 80061; 81001; 81003; 83036; 84443; 85025

== ENCOUNTER 2025-06-12 16:15 | Emergency (ER) | payer OTHER, SELFPAY ==
--- NOTE | ~2025-06-12 | XR_ITS ---
CLINICAL HISTORY: back pain 3 views thoracic spine Comparison: None provided Findings: Normal alignment. No acute fractures or dislocation. No significant degenerative change. IMPRESSION: No acute findings. This document has been electronically signed by: Beulah Shin MD on 06/12/2025 17:55:13
--- NOTE | ~2025-06-12 | XR_ITS ---
CLINICAL HISTORY: back pain 3 views lumbar spine Comparison: None provided Findings: Normal alignment. No acute fractures or dislocation. No significant degenerative change. IMPRESSION: No acute findings. This document has been electronically signed by: Beulah Shin MD on 06/12/2025 17:55:31
[2025-06-12 16:22] VITALS: BP 137/74; PULSE 108; RESP 18; TEMP 36.4; O2SAT 95; BMI 55.7
--- NOTE | 2025-06-12 17:42 | ED_ITS ---
HPI - General Adult General Chief complaint: Back Pain/Injury Stated complaint: Injury/fell down couple stairs back pain Time Seen by Provider: 06/12/25 16:39 Source: patient Mode of arrival: ambulatory Limitations: no limitations History of Present Illness ED Provider: Dustin Davis HPI narrative: 25 yold female presents to the back pain after awakardly twisting her back while tying her shoe laces. Patient denies blunt trauma, falling on the ground, abdominal pain, nuasea, vomitting, fever, chills, urinary/bowel incontinenece, weakness, paralysis of lower extremities, dysuria or hematuria. Related Data Home Medications ?Medication ?Instructions ?Recorded ?Confirmed cholecalciferol (vitamin D3) 25 25 mcg PO DAILY 02/19/25 mcg (1,000 unit) tablet cyanocobalamin (vitamin B-12) 1,000 mcg sublingual PILAR LY 02/19/25 02/19/25 1,000 mcg sublingual tablet hydroxyzine HCl 25 mg tablet 25 mg PO BEDTIME 02/19/25 02/19/25 lamotrigine 25 mg tablet 25 mg PO DAILY 02/19/2501/22 Previous Rx's ?Medication ?Instructions ?Recorded hydrocortisone 2.5 % topical cream 1 appl NJ BID-QID P RN itching 10 02/19/25 with perineal applicator days #30 grams (Anusol-HC) semaglutide (weight loss) 0.25 0.25 mg (0.5 mL) subcut QWEEK #2 mL 02/19/25 mg/0.5 mL subcutaneous pen injector (Wegovvitaly) albuterol sulfate 90 mcg/actuation 2 puff inhalation Q 4-6H PRN 03/09/25 aerosol inhaler shortness of breath or wheez ing #8.5 grams cyclobenzaprine 10 mg tablet 10 mg PO BEDTIME PRN musc le spasm 06/12/25 #10 tabs naproxen 500 mg tablet 500 mg PO BID PRN pain #14 t abs 06/12/25 Allergies Allergy/AdvReac Type Severity Reaction Status Date / Time shrimp Allergy Facial Verified 06/12/25 16:24 Swelling Review of Systems Review of Systems: back pain Yes all other systems are reviewed and are negative PMFSH Past Medical History Medical History Morbid obesity with BMI of 50.0-59.9, adult Hearing difficulty of left ear Migraine Depression Anxiety Asthma Surgical History No pertinent past surgical history Family History Family History Mother Bipolar affect, depressed Father Diabetes Brother Asthma Other FH: mental illness Social History Social History Household Members: Other Household Members Other:: grandmother Housing: House Alcohol intake: never Patient Tobacco Use Status: Never used Tobacco e-Cigarette/Vaping Use: Never Used Second Hand Smoke Exposure: No Advance Directives: No Advance Directives Information Provided: Yes service: No Current occupational status: student Current occupational exposures/hazards: No Cognitive needs: No Hearing needs: No Vision needs: Yes (Glasses) Physical Exam ED Vital Signs: Vital Signs - 24 hr 06/12/25 16:22 Temperature 97.5 F Pulse Rate 108 H Respiratory Rate 18 Blood Pressure 137/74 Pulse Oximetry 95 Oxygen Delivery Method Room Air BMI result Body Mass Index 55.7 Const General: cooperative, healthy appearing, comfortable, no acute distress, well developed, alert, awake and Physically active Orientation/consciousness: patient oriented x3 HENMT Head: Yes normal to inspection, Yes No palpable skull fracture present, Yes normocephalic and Yes atraumatic Eyes General: appearance normal, both eyes and all related structures Neck Neck: Yes normal visual inspection, Yes full ROM, Yes no lymphadenopathy, Yes no meningeal signs, Yes trachea midline, Yes supple, No anterior neck swelling and No tender Chest Chest palpation & inspection: normal inspection of the chest and normal palpation of entire chest wall Resp Effort & Inspection: normal respiratory effort and able to speak in complete sentences Auscultation: clear to auscultation bilaterally Cardio Jugular venous distension: no JVD Heart sounds: S1 normal heart sound present and S2 normal heart sound present GI Inspection: Yes normal to inspection Palpation (GI): Soft to palpation, not firm, nontender, no guarding and not rigid General: Yes no CVA tenderness Back/Spine/Pelvis Back: no CVA tenderness and back tenderness (thoracic/lumbar spine tenderness) Skin General skin exam: no rashes or lesions noted, elasticity normal and turgor no rmal Neuro General: patient oriented x3, gait normal, tone normal, moves all extremities, Normal light touch and pain sensation, no meningeal signs, no focal motor deficits, CN's II-XI intact bilaterally and normal sensation to monofilament Extrem General: Yes normal to inspection, Yes full ROM and Yes capillary refill normal Psych Appearance: grossly normal, well kempt and not disheveled Medical Decision Making Medical Decision Making MDM Narrative: 25-year-old female presents to ED for back pain after bending down to tie his shoelaces and did awkward movement. Patient denies any flank pain attending urinary symptoms, blunt trauma, nausea, IV drug use, urinary/bladder incontinence, history of immunocompromised diseases, or vomiting. X-rays ordered. 6:49: X-ray normal. X-ray normal. Patient is discharged with pain medication muscle relaxer. Patient explained worrisome signs and informed to return to the ED immediately. Not suspecting caudian equina syndrome, epdural abscess, kidney stones, pyleonephritits, osteomyeltitis, or any other life threatening eitiolgy. Differential Diagnosis Differential Diagnoses: The differential diagnosis associated with the presentation includes (back strain, fracture, dilsocations, ) Admission/Observation Consideration of admission/observation: Escalation of care including admission/observation considered Independent Interpretation I performed an independent interpretation of an: Plain X-Ray Radiology Impression Discussion of test interpretation with radiology: I have reviewed the radiologist's reading. Independent Historian Clinical information obtained from an independent historian. History obtained from or confirmed by: Other (patient) Prescription Management I considered prescription management with: Pain Medication Discharge Plan Discharge Clinical Impression: Low back sprain, Back strain Patient Disposition: Home, Self-Care Instructions: Muscle Strain (ED), Low Back Strain (ED), Back Pain (ED), P.R.I. C.E. Treatment (ED), Lower Back Exercises (ED), Cold Compress or Soak (ED) Additional Instructions: Your images came back normal. Recommend follow up with primary care provider that is no pain relief. Return to the ED for severe back pain, urinary/bowel incontinence, weakness numbness of lower extremity, abdominal pain, nausea, vomiting, dysuria, hematuria, fever, chills, flank pain, or any other concerning symptoms. Ordering Physician: Dustin Davis Date of Service: 06/12/25 Procedure(s): XR lumbar spine 2-3V Accession Number(s): [id number] cc: Dustin Davis~ Reason for Exam: back pain CLINICAL HISTORY: back pain 3 views lumbar spine Comparison: None provided Findings: Normal alignment. No acute fractures or dislocation. No significant degenerative change. IMPRESSION: No acute findings. This document has been electronically signed by: Beulah Shin MD on 06/12/2025 17:55:31 Ordering Physician: Dustin Davis Date of Service: 06/12/25 Procedure(s): XR thoracic spine 3V Accession Number(s): [id number] cc: Dustin Davis~ Reason for Exam: back pain CLINICAL HISTORY: back pain 3 views thoracic spine Comparison: None provided Findings: Normal alignment. No acute fractures or dislocation. No significant degenerative change. IMPRESSION: No acute findings. This document has been electronically signed by: Beulah Shin MD on 06/12/2025 17:55:13 Prescriptions: New naproxen 500 mg tablet 500 mg PO BID PRN (Reason: pain) Qty: 14 0RF cyclobenzaprine 10 mg tablet 10 mg PO BEDTIME PRN (Reason: muscle spasm) Qty: 10 0RF Rx Instructions: side effect is drowsiness. DO not take at work or while driving. No Action albuterol sulfate 90 mcg/actuation HFA aerosol inhaler 2 puff inhalation Q4-6H PRN (Reason: shortness of breath or wheezing) Qty: 8.5 2RF lamotrigine 25 mg tablet 25 mg PO DAILY hydroxyzine HCl 25 mg tablet 25 mg PO BEDTIME cyanocobalamin (vitamin B-12) 1,000 mcg tablet, sublingual 1,000 mcg sublingual DAILY cholecalciferol (vitamin D3) 25 mcg (1,000 unit) tablet 25 mcg PO DAILY Wegovy 0.25 mg/0.5 mL pen injector 0.25 mg subcut QWEEK Qty: 2 1RF Rx Instructions: administer weeks 1 through 4 of therapy hydrocortisone [Anusol-HC] 2.5 % cream with perineal applicator 1 appl NJ BID-QID PRN (Reason: itching) 10 Days Qty: 30 2RF Referrals: [facility] Primary Care, Lisa [Provider Group, Internal Medicine] - 2 days Referral Note: back pain Clinical Impression: Back strain; Low back sprain Stand Alone Forms: Work/School Release Interventions: ED Discharge Assessment Last Done: 06/12/25 19:13 Discharge Date/Time: 06/12/25 19:14 Print Language: Vietnamese
[2025-06-12 19:13] VITALS: BP 122/88; PULSE 87; RESP 14; TEMP 36.7; O2SAT 99
== END 2025-06-12 19:14 | disposition home or self-care (01) ==
LOC: HO.ED 19:10
PROVIDERS: Emergency Provider Emergency Medicine; PCP Physician Assistant
DX: S29.9XXA Unspecified injury of thorax, initial encounter (principal); S33.5XXA Sprain of ligaments of lumbar spine, initial encounter; R11.2 Nausea with vomiting, unspecified; R10.20 Pelvic and perineal pain unspecified side; W10.9XXA Fall (on) (from) unspecified stairs and steps, initial encounter; Y93.9 Activity, unspecified; Y92.9 Unspecified place or not applicable; Y99.8 Other external cause status; Z79.899 Other long term (current) drug therapy
CPT/HCPCS: 72072; 72100; 99282; 99283

== ENCOUNTER → 2025-06-12 16:27 | Outpatient (BNV) | payer OTHER, SELFPAY | PROVIDERS: Emergency Provider Emergency Medicine; Visit Provider Radiology Diagnostic Radiology | DX: M54.50 Low back pain, unspecified (principal); M54.6 Pain in thoracic spine | CPT/HCPCS: 72072; 72100 ==